=== PATIENT | female | born 1995 | race African-American/Black ===

== ENCOUNTER 2017-01-14 20:50 | Emergency (ER) | payer BC, OTHER ==
[~2017-01-14] VITALS: Ht 167.6 cm; Wt 104.2 kg
[2017-01-14 20:55] VITALS: Ht 167.6 cm; Wt 104.2 kg
[2017-01-14 21:40] VITALS: TEMP 37.3
[2017-01-14 22:19] LABS: BASO % 0.1 %; BASO ABS # 0.01 K/uL (0-0.2); COMPLETE YES; HEMATOCRIT 38.9 % (37-47); IG% 0.9 %; LYMPH % 10.3 %; LYMPH ABS # 1.61 K/uL (1.2-3.4); MEAN CELL VOLUME 79.1 fL (80-100); MEAN CORPUSCULAR HGB CONC 32.9 g/dl (32-36); MEAN PLATELET VOLUME 9.4 fL (7.4-10.4); MONO % 2.6 %; NEUT % 86.1 %; PLATELET COUNT 359 K/uL (130-400); RED BLOOD COUNT 4.92 M/uL (4.2-5.4); WHITE BLOOD COUNT 15.67 K/uL (4.8-10.8)
[2017-01-14] MEDS ORDERED: [UNRECOGNIZED DRUG - CODE] PO ×2 (22:33)
[2017-01-14] MEDS ORDERED: NEBI2.5T2 PO ×2 (22:33)
[2017-01-14] MEDS ORDERED: AMT24 PO ×2 (22:33)
[2017-01-14] MEDS ORDERED: LIDO1PAD2 TOP ×2 (22:33)
[2017-01-14] MEDS ORDERED: CETI10TA10 PO ×2 (22:33)
[2017-01-14] MEDS ORDERED: ABL10 PO ×2 (22:33)
[2017-01-14] MEDS ORDERED: CYCL5TAB PO ×2 (22:33)
[2017-01-14] MEDS ORDERED: EPIN2INJ IM ×2 (22:33)
[2017-01-14] MEDS ORDERED: CLON1TAB3 PO ×2 (22:33)
[2017-01-14] MEDS ORDERED: FLUO40CA8 PO ×2 (22:33)
[2017-01-14] MEDS ORDERED: FRS/40 PO ×2 (22:33)
[2017-01-14] MEDS ORDERED: BUSP30TA2 PO ×2 (22:33)
[2017-01-14] MEDS ORDERED: PROM25TA9 PO ×2 (22:33)
[2017-01-14] MEDS ORDERED: LINA1CAP PO ×2 (22:33)
[2017-01-14] MEDS ORDERED: METO-157 PO (22:33)
--- NOTE | 2017-01-14 22:36 | EMERGENCY ROOM VISIT NOTE ---
History Report prepared by Shantell: Morgan Amaya Under the Supervision of: Dr. Abdulaziz Pool M.D. First contact with patient: 21:01 Chief Complaint: ABDOMINAL PAIN Stated Complaint: LOWER ABDOMINAL PAIN, BACK PAIN, FEVER- REFERRED History of Present Illness The patient is a 21 year old female who presents to the Emergency Room with complaints of constant abdominal pain for the past couple of days. She currently rates her discomfort as a 9/10 in severity. The patient additionally notes that she is having some back pain and a fever. She states that she has been having urinary retention issues. The patient has recently been Seen at the [facility] in [place] for some swelling episodes during which her mouth swells, her throat swells, and her abdomen swells. The patient he been using a straight cath by herself, and they did not put a Gregorio catheter in place. The patient also has a history of rheumatoid arthritis. Source of History: patient, parent Onset: couple of days ago Position: abdomen Symptom Intensity: 9/10 Timing: constant Associated Symptoms: + back pain, + urinary symptoms Review of Systems See HPI for pertinent positives & negatives. A total of 10 systems reviewed and were otherwise negative. Past Medical & Surgical Medical Problems: (1) Asthma (2) Kidney stone (3) Ulcer Family History Cancer Diabetes mellitus Gallbladder disease Heart disease Hypertension Kidney disease Kidney stones Lung disease Social History Smoking Status: Never Smoker Drug Use: none Marital Status: single Housing Status: lives with family Occupation Status: unemployed Current/Historical Medications Scheduled Aripiprazole (Abilify), 10 MG PO DAILY Baclofen (Lioresal), 10 MG PO QID Bisoprolol Fumarate (Bisoprolol Fumarate), 1 TAB PO UD Buspirone Hcl (Buspirone Hcl), 30 MG PO BID Cetirizine Hcl (Zyrtec), 20 MG PO BID Clonazepam (Klonopin), 1 TAB PO UD Cromolyn Sodium (Mastocytosis) (Cromolyn Sodium), 10 ML PO TID Cyclobenzaprine Hcl (Flexeril), 5 MG PO DAILY Docusate Sodium (Colace), 1 CAP PO UD Fluoxetine (Prozac), 40 MG PO DAILY Fluticasone Prop/Salmeterol (Advair Diskus 250/50 60 Dose), 1 PUFF INH BID Granisetron (Sancuso), 1 PATCH TOP WK Hydroxychloroquine Sulfate (Plaquenil), 400 MG PO DAILY Lactobacillus (Acidophilus), 1 CAP PO BID Lactulose (Chronulac), 10 ML PO BID Lansoprazole (Prevacid), 30 MG PO DAILY Linaclotide (Linzess), 145 MCG PO DAILY Lisdexamfetamine Dimesylate (Vyvanse), 1 DOSE PO DAILY Loratadine (Claritin), 10 MG PO DAILY Lorazepam (Ativan), 1 DOSE PO UD Lubiprostone (Amitiza), 24 MCG PO BID Montelukast Sodium (Montelukast Sodium), 10 MG PO DAILY Nebivolol Hcl (Bystolic), 2.5 MG PO HS Norethindrone (Aygestin), 5 MG PO DAILY Plecanatide (Trulance), 1 TAB PO UD Polyethylene Glycol 3350 (Bulk (Polyethylene Glycol 3350), 1 GM PO TID Pregabalin (Lyrica), 1 CAP PO UD Ranitidine Hcl (Ranitidine Hcl), 150 MG PO BID Sulfa/Trimethoprim (Bactrim Ds 800MG/160MG), 1 TAB PO BID Tamsulosin Hcl (Flomax), 1 CAP PO UD Trazodone Hcl (Trazodone), 100 MG PO HS Scheduled PRN Albuterol (Ventolin Hfa), 2 PUFFS INH Q4H PRN for SOB/WHZ/Cough Albuterol Sulf (Albuterol Sulfate), 3 ML NEB QID PRN for SOB/Wheeze/Cough Diphenhydramine Hcl (Benadryl Allergy Children), 5-10 ML PO QID PRN for Swelling Epinephrine (Epipen-Jr 2-Jai), 0.15 MG IM UD PRN for ALLERGIC REACTION Furosemide (Lasix), 40 MG PO BID PRN for Fluid Retention Lidocaine (Lidocaine), 1 PATCH TOP DAILY PRN for Pain Metoclopramide (Reglan), 10 MG PO Q6H PRN for Nausea Oxycodone/Acetaminophen 5MG/325MG (Percocet 5MG/325MG), 1-2 TAB PO Q4H PRN for Pain Prednisone (Prednisone), 10 MG PO UD PRN for Swelling Promethazine Hcl (Phenergan), 25 MG PO Q4H PRN for Nausea Allergies Coded Allergies: Amoxicillin (Verified Allergy, Severe, ANAPHYLAXIS, 01/14/17) Clindamycin (Verified Allergy, Severe, ANAPHYLAXIS, 01/14/17) Physical Exam Vital Signs Date Time Temp Pulse Resp B/P (MAP) Pulse Ox O2 Delivery O2 Flow Rate FiO2 01/15/17 01:27 83 18 141/91 97 Room Air 01/14/17 21:42 110 01/14/17 21:40 37.3 01/14/17 20:55 37.7 122 18 144/77 98 Room Air Physical Exam GENERAL: Patient is a healthy-appearing well-nourished female HEAD: Normocephalic atraumatic EYES: Ocular movements intact pupils equal and react to light OROPHARYNX mucous membranes are moist no exudates present no erythema or edema present NECK: Supple no nuchal rigidity CHEST: Good equal expansion LUNGS: Clear and equal to auscultation CARDIAC: Normal S1 and S2 ABDOMEN: Soft nontender no guarding BACK: No CVA tenderness EXTREMITIES: No pain upon palpation normal muscle strength in all groups no clubbing cyanosis or edema NEURO: Patient is following commands and answering questions appropriately. Alert and oriented x3 Cranial Nerves 2-12 grossly intact Medical Decision & Procedures ER Provider Diagnostic Interpretation: Radiology results as stated below per my review and radiologist interpretation: CT ABDOMEN & PELVIS with contrast: Moderate to large amount of stool in the colon suggesting constipation. The appendix is normal in size and without evidence of surrounding inflammatory change. Trace free fluid in pelvis, likely physiologic. Multiple follicles in left ovary. No evidence of adnexal mass No small bowel obstructions. No free air. The liver, spleen, pancreas, gallbladder and kidneys are unremarkable. Urinary bladder is distended and otherwise unremarkable. Small fat-containing umbilical hernia Radiologist: Vamsi Hernandes MD Laboratory Results 01/14/17 22:08 Red Blood Count 4.92, Mean Corpuscular Volume 79.1, Mean Corpuscular Hemoglobin 26.0, Mean Corpuscular Hemoglobin Concent 32.9, Mean Platelet Volume 9.4, Neutrophils (%) (Auto) 86.1, Lymphocytes (%) (Auto) 10.3, Monocytes (%) (Auto) 2.6, Eosinophils (%) (Auto) 0.0, Basophils (%) (Auto) 0.1, Neutrophils # (Auto) 13.50, Lymphocytes # (Auto) 1.61, Monocytes # (Auto) 0.41, Eosinophils # (Auto) 0.00, Basophils # (Auto) 0.01 01/14/17 22:08 Test 01/14/17 22:08 01/14/17 23:20 White Blood Count 15.67 K/uL (4.8-10.8) Red Blood Count 4.92 M/uL (4.2-5.4) Hemoglobin 12.8 g/dL (12.0-16.0) Hematocrit 38.9 % (37-47) Mean Corpuscular Volume 79.1 fL (80-100) Mean Corpuscular Hemoglobin 26.0 pg (25-34) Mean Corpuscular Hemoglobin Concent 32.9 g/dl (32-36) Platelet Count 359 K/uL (130-400) Mean Platelet Volume 9.4 fL (7.4-10.4) Neutrophils (%) (Auto) 86.1 % Lymphocytes (%) (Auto) 10.3 % Monocytes (%) (Auto) 2.6 % Eosinophils (%) (Auto) 0.0 % Basophils (%) (Auto) 0.1 % Neutrophils # (Auto) 13.50 K/uL (1.4-6.5) Lymphocytes # (Auto) 1.61 K/uL (1.2-3.4) Monocytes # (Auto) 0.41 K/uL (0.11-0.59) Eosinophils # (Auto) 0.00 K/uL (0-0.5) Basophils # (Auto) 0.01 K/uL (0-0.2) RDW Standard Deviation 43.9 fL (36.4-46.3) RDW Coefficient of Variation 15.3 % (11.5-14.5) Immature Granulocyte % (Auto) 0.9 % Immature Granulocyte # (Auto) 0.14 K/uL (0.00-0.02) Anion Gap 10.0 mmol/L (3-11) Est Creatinine Clear Calc Drug Dose 120.9 ml/min Estimated GFR () 106.6 Estimated GFR (Non- 92.0 BUN/Creatinine Ratio 18.0 (10-20) Calcium Level 9.2 mg/dl (8.5-10.1) Total Bilirubin 0.2 mg/dl (0.2-1) Direct Bilirubin < 0.1 mg/dl (0-0.2) Aspartate Amino Transf (AST/SGOT) 8 U/L (15-37) Alanine Aminotransferase (ALT/SGPT) 19 U/L (12-78) Alkaline Phosphatase 107 U/L (45-117) Total Protein 8.1 gm/dl (6.4-8.2) Albumin 3.8 gm/dl (3.4-5.0) Lipase 109 U/L (73-393) Urine Color YELLOW Urine Appearance CLEAR (CLEAR) Urine pH 5.5 (4.5-7.5) Urine Specific [place] 1.028 (1.000-1.030) Urine Protein NEG (NEG) Urine Glucose (UA) NEG (NEG) Urine Ketones NEG (NEG) Urine Occult Blood NEG (NEG) Urine Nitrite NEG (NEG) Urine Bilirubin NEG (NEG) Urine Urobilinogen NEG (NEG) Urine Leukocyte Esterase TRACE (NEG) Urine WBC (Auto) 1-5 /hpf (0-5) Urine RBC (Auto) 0-4 /hpf (0-4) Urine Hyaline Casts (Auto) 1-5 /lpf (0-5) Urine Epithelial Cells (Auto) 20-30 /lpf (0-5) Urine Bacteria (Auto) 4+ (NEG) Labs reviewed by ED physician. Medications Administered Medications (Trade) Dose Ordered Sig/Madeline Route Start Time Stop Time Status Last Admin Dose Admin Sodium Chloride 1,000 ml @ 999 mls/hr Q1H1M STAT IV 01/14/17 22:42 01/14/17 23:42 DC 01/14/17 22:42 999 MLS/HR Ketorolac Tromethamine (Toradol Inj) 30 mg NOW STAT IV 01/14/17 22:42 01/14/17 22:44 DC 01/14/17 22:56 30 MG Hydromorphone HCl (Dilaudid Inj) 1 mg NOW STAT IV 01/14/17 22:42 01/14/17 22:44 DC 01/14/17 22:56 1 MG Ondansetron HCl (Zofran Inj) 4 mg NOW STAT IV 01/14/17 22:42 01/14/17 22:44 DC 01/14/17 22:56 4 MG Trimethoprim/ Sulfamethoxazole (Septra Ds 800/ 160MG Tab) 1 tab NOW STAT PO 01/15/17 00:13 01/15/17 00:16 DC 01/15/17 00:24 1 TAB Oxycodone/ Acetaminophen (Percocet 5/ 325MG Home Pack) 1 homepack UD STAT PO 01/15/17 00:13 01/15/17 00:16 DC 01/15/17 00:24 1 HOMEPACK Hydromorphone HCl (Dilaudid Inj) 1 mg NOW STAT IV 01/15/17 00:13 01/15/17 00:16 DC 01/15/17 00:24 1 MG Ceftriaxone Sodium (Rocephin Inj) 1 gm NOW STAT IV 01/15/17 00:13 01/15/17 00:16 DC 01/15/17 00:24 1 GM ED Course 2215: Past medical records reviewed. The patient was evaluated in room A9. A complete history and physical examination was performed. 2242: Zofran 4mg IV, Dilaudid 1mg IV, Toradol 30mg IV, Sodium Chloride 1000 ml @ 999 mls/hr IV 2355: I reevaluated the patient, and I reviewed all the case reports from [facility]. Her white blood cell count was elevated while in the hospital there. They did not put a Gregorio catheter in because of her chronic immunosuppression from steroids. I think that the patient is at high risk for infection here, so she is going to give antibiotics and a Gregorio was placed. The patient will be discharged home. 0013: Rocephin 1gm IV, Dilaudid 1mg IV, Percocet 5/325mg Home Pack PO, Septra Ds 800/160mg Tab PO Medical Decision Differential diagnosis: Etiologies such as appendicitis, diverticulitis, PUD, biliary pathology, UTI, pancreatitis, obstruction, mesenteric ischemia, aortic pathology, infections, inflammatory bowel disease, renal colic, as well as others were entertained. This is a 21-year-old female who presents emergency department complaining of abdominal pain. The patient recently had stay at the [facility] and is passing through [facility]. I will note she is afebrile here. The patient does have an elevation in her white blood count cell count however is on prednisone and recently completed a prednisone taper. The patient has a large amount of stool on her CAT scan of the abdomen and pelvis. The patient has to bowel regimens that she normally uses and I stressed the need to increase to the larger bowel regimen. The patient is also self cathing. Using shared medical decision-making as well as the fact that the patient is immuno suppressed due to the prednisone use we felt it better to have a Gregorio catheter placed at the patient and her mother are worried she is going to develop an infection. I will place the patient on Bactrim. She does have a follow-up appointment with her urologist at home. Both patient and mother were in agreement with the treatment plan. Impression Primary Impression: Urinary retention Additional Impressions: UTI (urinary tract infection) Abdominal pain Constipation Scribe Attestation The scribe's documentation has been prepared under my direction and personally reviewed by me in its entirety. I confirm that the note above accurately reflects all work, treatment, procedures, and medical decision making performed by me. Departure Information Dispostion Home / Self-Care Prescriptions Oxycodone/Acetaminophen 5MG/325MG (PERCOCET 5MG/325MG) Tab 1-2 TAB PO Q4H Y for Pain, #14 TAB Prov: Abdulaziz Pool MD 01/15/17 Sulfa/Trimethoprim (Bactrim Ds 800MG/160MG) Tab 1 TAB PO BID for 7 Days, #14 TAB Prov: Abdulaziz Polo MD 01/15/17 Referrals No Doctor, Assigned (PCP) Forms HOME CARE DOCUMENTATION FORM, IMPORTANT VISIT INFORMATION, School Instructions, Work Instructions Patient Instructions ED Catheter Care Gregorio, ED UTI Cystitis Female, My [facility] Additional Instructions Need follow up with Urologist at home You received narcotic or benzodiazepene medication while in the emergency room today. This is an addictive medication that may cause drowziness as well as constipation. Do not drive, operate heavy machinery, or drink alcohol under the influence of this medication. Take 600 mg Ibuprofen every 6 hours Take Percocet for breakthrough pain Radiographs and CTs will be reread by a radiologist in the morning. Culture results are usually available in approx 48 hours You have been examined and treated today on an emergency basis only. This is not a substitute for, or an effort to provide, complete comprehensive medical care. It is impossible to recognize and treat all injuries or illnesses in a single emergency department visit. It is therefore important that you follow up closely with your PCP. Call as soon as possible for an appointment. Thank you for your time and consideration. I look forward to speaking with you again soon. Please don't hesitate to call us if you have any questions. Problem Qualifiers Additional Impressions: UTI (urinary tract infection) Urinary tract infection type: acute cystitis Hematuria presence: without hematuria Qualified Codes: N30.00 - Acute cystitis without hematuria Abdominal pain Abdominal location: lower abdomen, unspecified Qualified Codes: R10.30 - Lower abdominal pain, unspecified Constipation Constipation type: unspecified constipation type Qualified Codes: K59.00 - Constipation, unspecified
[2017-01-14 22:38] LABS: ALT/SGPT 19 U/L (12-78); BLOOD UREA NITROGEN 16 mg/dl (7-18); CALCIUM 9.2 mg/dl (8.5-10.1); CARBON DIOXIDE 22 mmol/L (21-32); CHLORIDE 107 mmol/L (98-107); CREATININE 0.89 mg/dl (0.60-1.20); GLUCOSE 103 mg/dl (70-99); POTASSIUM 4.6 mmol/L (3.5-5.1); SODIUM 139 mmol/L (136-145)
[2017-01-14 22:40] LABS: ALKALINE PHOSPHATASE 107 U/L (45-117); AST/SGOT 8 U/L (15-37)
[2017-01-14] MEDS ORDERED: CLR10 PO ×2 (22:40)
[2017-01-14] MEDS ORDERED: NORE5TAB5 PO ×2 (22:40)
[2017-01-14] MEDS ORDERED: LACTCAP3 PO ×2 (22:40)
[2017-01-14] MEDS ORDERED: POLY1POW2 PO ×2 (22:40)
[2017-01-14] MEDS ORDERED: LACT10SO17 PO ×2 (22:40)
[2017-01-14] MEDS ORDERED: MONT1TAB5 PO ×2 (22:40)
[2017-01-14] MEDS ORDERED: ADVIN25/60 INH ×2 (22:40)
[2017-01-14] MEDS ORDERED: HYDR200T5 PO ×2 (22:40)
[2017-01-14] MEDS ORDERED: KETOROLAC TROMETHAMINE 30 MG/ML VIAL IV STA (22:42)
[2017-01-14] MEDS ORDERED: HYDROmorphone INJ 1 MG/ML SYR IV STA (22:42)
[2017-01-14] MEDS ORDERED: SODIUM CHLORIDE 0.9% 1000ML 1,000 ML IV STA (22:42)
[2017-01-14] MEDS ORDERED: ONDANSETRON INJ 2 MG/ML 2 ML VIAL IV STA (22:42)
[2017-01-14] MEDS ORDERED: DIPH1LIQ2 PO (22:44)
[2017-01-14] MEDS ORDERED: BACL10TA PO ×2 (22:44)
[2017-01-14] MEDS ORDERED: PRVHFAIN INH ×2 (22:44)
[2017-01-14] MEDS ORDERED: TRAZ100T29 PO ×2 (22:44)
[2017-01-14] MEDS ORDERED: RANI150C4 PO ×2 (22:44)
[2017-01-14] MEDS ORDERED: OPTIRAY 320 IV PRN (22:45)
[2017-01-14] MEDS ORDERED: ALBINS NEB ×2 (22:51)
[2017-01-14] MEDS ORDERED: BISO10TA4 PO (22:58)
[2017-01-14] MEDS ORDERED: PRED10TA PO (22:58)
[2017-01-14] MEDS ORDERED: TAMS0.4C38 PO (22:58)
[2017-01-14] MEDS ORDERED: [UNRECOGNIZED DRUG - CODE] TOP ×2 (22:58)
[2017-01-14] MEDS ORDERED: LANS30CA41 PO ×2 (22:58)
[2017-01-14] MEDS ORDERED: PLEC3TAB PO ×2 (22:58)
[2017-01-14] MEDS ORDERED: PREG1CAP36 PO ×2 (22:58)
[2017-01-14] MEDS ORDERED: DOCU-94 PO ×2 (22:58)
[2017-01-14] MEDS ORDERED: LISD20CA PO ×2 (23:01)
[2017-01-14] MEDS ORDERED: LORA-741 PO ×2 (23:01)
[2017-01-14 23:46] LABS: URINE APPEARANCE CLEAR (CLEAR); URINE BILIRUBIN NEG (NEG); URINE COLOR YELLOW; URINE EPITHELIAL CELL AUTO 20-30 /lpf (0-5); URINE NITRITE NEG (NEG); URINE PH 5.5 (4.5-7.5); URINE SPECIFIC GRAVITY 1.028 (1.000-1.030); UROBILINOGEN NEG (NEG); ZZURINE CULT IF INDIC CATH YES
[2017-01-14 23:48] LABS: MANUAL MICROSCOPIC REQUIRED? NO; REVIEW REQ? NO
[2017-01-15] MEDS ORDERED: HYDROmorphone INJ 1 MG/ML SYR IV STA (00:13)
[2017-01-15] MEDS ORDERED: SULFAMETHOXAZOLE/TRIMETHOPRIM DS 800/160MG TAB PO STA (00:13)
[2017-01-15] MEDS ORDERED: CEFTRIAXONE SOD INJ 1 GM ADDVIAL IV STA (00:13)
[2017-01-15] MEDS ORDERED: PERCOCET HOME PACK PO STA (00:13)
[2017-01-15] MEDS ORDERED: SULF800T23 PO ×3 (00:21→06:01)
[2017-01-15] MEDS ORDERED: OXYC-57 PO ×3 (00:21→06:00)
[2017-01-15 01:27] VITALS: BP 141/91; PULSE 83; O2SAT 97
--- NOTE | 2017-01-15 06:49 | DIAGNOSTIC IMAGING REPORT ---
ABDOMEN AND PELVIS CT WITH IV CONTRAST CT DOSE: 720.02 mGy.cm HISTORY: Acute left lower quadrant abdominal pain Pt c/o lLQ abd pain TECHNIQUE: Multiaxial CT images of the abdomen and pelvis were performed following the use of intravenous contrast. 105 mL Optiray 320 IV contrast was administered. A dose lowering technique was utilized adhering to the principles of ALARA. COMPARISON STUDY: None. FINDINGS: Lung bases are generally clear. There is no pneumoperitoneum identified. Imaged inferior cardiac chambers are unremarkable. The liver, spleen, pancreas, gallbladder and adrenal glands are unremarkable. Kidneys, ureters and urinary bladder are unremarkable. Uterus and right adnexum are also within normal limits. Follicles of the left ovary are seen. The abdominal aorta is normal in both course and caliber. There is no bulky retroperitoneal adenopathy identified. There is a suspected small sliding-type hiatal hernia. No bowel obstruction. Moderate volume of formed stool throughout the colon suggest constipation. No bowel wall thickening identified. The appendix appears normal. Small fat filled periumbilical hernia, diastases 1.3 cm. The bones appear intact. Soft tissues are unremarkable. IMPRESSION: 1. No acute intra-abdominal or intrapelvic abnormality identified. 2. Moderate volume of formed stool throughout the colon suggest constipation. 3. Normal appendix. Electronically signed by: Jean-Paul Skinner M.D. 01/15/2017 6:47 AM Dictated Date/Time: 01/15/2017 6:43 AM
[2017-01-15] MEDS ORDERED: DIPH25CA65 PO ×2 (10:10)
[2017-01-16] MEDS ORDERED: FLM4 PO ×2 (10:46)
[2017-01-16] MEDS ORDERED: PHEN-1043 PO ×2 (10:46)
[2017-01-16] MEDS ORDERED: DTR5 PO ×2 (10:46)
[2017-01-16] MEDS ORDERED: CIPR-255 PO ×2 (10:46)
== END 2017-01-15 01:27 | disposition home or self-care (01) ==
LOC: C.EDB 20:54 → C.EDA 01-15 01:27
DX: R33.9 Retention of urine, unspecified (principal); N39.0 Urinary tract infection, site not specified; R10.9 Unspecified abdominal pain; K59.00 Constipation, unspecified; J45.909 Unspecified asthma, uncomplicated; Z87.442 Personal history of urinary calculi; Z87.19 Personal history of other diseases of the digestive system; Z79.899 Other long term (current) drug therapy; Z88.1 Allergy status to other antibiotic agents; Z88.8 Allergy status to other drugs, medicaments and biological substances; Z80.9 Family history of malignant neoplasm, unspecified; Z83.3 Family history of diabetes mellitus; Z83.79 Family history of other diseases of the digestive system; Z82.49 Family history of ischemic heart disease and other diseases of the circulatory system; Z84.1 Family history of disorders of kidney and ureter

== ENCOUNTER 2017-01-15 05:31 | Inpatient (IN) | payer BC, OTHER ==
[~2017-01-15] VITALS: Ht 167.6 cm; Wt 104.5 kg
[~2017-01-15 05:31] MED LIST: ABL10 PO; ADVIN25/60 INH; ALBINS NEB; AMT24 PO; BACL10TA PO; BISO10TA4 PO; BUSP30TA2 PO; CETI10TA10 PO; CLON1TAB3 PO; CLR10 PO; CYCL5TAB PO; DIPH1LIQ2 PO; DOCU-94 PO; EPIN2INJ IM; FLUO40CA8 PO; FRS/40 PO; HYDR200T5 PO; LACT10SO17 PO; LACTCAP3 PO; LANS30CA41 PO; LIDO1PAD2 TOP; LINA1CAP PO; LISD20CA PO; LORA-741 PO; METO-157 PO; MONT1TAB5 PO; NEBI2.5T2 PO; NORE5TAB5 PO; OXYC-57 PO; PLEC3TAB PO; POLY1POW2 PO; PRED10TA PO; PREG1CAP36 PO; PROM25TA9 PO; PRVHFAIN INH; RANI150C4 PO; SULF800T23 PO; TAMS0.4C38 PO; TRAZ100T29 PO; [UNRECOGNIZED DRUG - CODE] PO; [UNRECOGNIZED DRUG - CODE] TOP
[2017-01-15] MEDS ORDERED: HYDROmorphone INJ 0.5 MG/0.5 ML SYR IV STA ×2 (05:46→15:56)
[2017-01-15] MEDS ORDERED: SODIUM CHLORIDE 0.9% 500ML 500 ML IV STA (05:46)
[2017-01-15] MEDS ORDERED: KETOROLAC TROMETHAMINE 30 MG/ML VIAL IV STA (05:46)
[2017-01-15] MEDS ORDERED: OXYC-57 PO ×2 (06:00)
[2017-01-15] MEDS ORDERED: SULF800T23 PO (06:01)
--- NOTE | 2017-01-15 06:11 | EMERGENCY ROOM VISIT NOTE ---
History Report prepared by Shantell: Irais Hairston Under the Supervision of: Dr. Teresa Cerda M.D. First contact with patient: 05:40 Chief Complaint: ABDOMINAL PAIN Stated Complaint: ABDOMINAL PAIN History of Present Illness The patient is a 21 year old female who presents to the Emergency Room with complaints of persistent abdominal pain starting last night. The patient was seen in the ED yesterday for the same abdominal pain. She is also having some back pain. She was diagnosed with cysts on her ovaries and possible UTI. She was discharged with antibiotics and Percocet. She took two Percocet and went to sleep. She woke up 3 hours later still having pain. She called the ED and was instructed to take ibuprofen which she did. She is still having a lot of pain. She is now draining brown urine into her catheter. She did not have any Pyridium here. She has had a fever. She has a history of angioedema, rheumatoid arthritis, POTS, Bridget Danlos, and IBS. Source of History: patient Onset: last night Position: abdomen Quality: other (pain) Timing: other (persistent) Associated Symptoms: + fevers, + back pain, + urinary symptoms Review of Systems See HPI for pertinent positives & negatives. A total of 10 systems reviewed and were otherwise negative. Past Medical & Surgical Medical Problems: (1) Angioedema (2) Asthma (3) Bridget-Danlos disease (4) IBS (irritable bowel syndrome) (5) Kidney stone (6) POTS (postural orthostatic tachycardia syndrome) (7) Rheumatoid arthritis (8) Ulcer Family History Cancer Diabetes mellitus Gallbladder disease Heart disease Hypertension Kidney disease Kidney stones Lung disease Social History Smoking Status: Never Smoker Drug Use: none Marital Status: single Housing Status: lives with family Occupation Status: unemployed Current/Historical Medications Scheduled Aripiprazole (Abilify), 10 MG PO DAILY Baclofen (Lioresal), 10 MG PO QID Bisoprolol Fumarate (Bisoprolol Fumarate), 1 TAB PO UD Buspirone Hcl (Buspirone Hcl), 30 MG PO BID Cetirizine Hcl (Zyrtec), 20 MG PO BID Clonazepam (Klonopin), 1 MG PO HS Cromolyn Sodium (Mastocytosis) (Cromolyn Sodium), 10 ML PO TID Cyclobenzaprine Hcl (Flexeril), 5 MG PO DAILY Docusate Sodium (Colace), 1 CAP PO UD Fluoxetine (Prozac), 40 MG PO DAILY Fluticasone Prop/Salmeterol (Advair Diskus 250/50 60 Dose), 1 PUFF INH BID Granisetron (Sancuso), 1 PATCH TOP WK Hydroxychloroquine Sulfate (Plaquenil), 400 MG PO DAILY Lactobacillus (Acidophilus), 1 CAP PO BID Lactulose (Chronulac), 10 ML PO BID Lansoprazole (Prevacid), 30 MG PO DAILY Linaclotide (Linzess), 145 MCG PO DAILY Lisdexamfetamine Dimesylate (Vyvanse), 1 DOSE PO DAILY Loratadine (Claritin), 10 MG PO DAILY Lubiprostone (Amitiza), 24 MCG PO BID Montelukast Sodium (Montelukast Sodium), 10 MG PO DAILY Nebivolol Hcl (Bystolic), 2.5 MG PO HS Norethindrone (Aygestin), 5 MG PO DAILY Plecanatide (Trulance), 1 TAB PO UD Polyethylene Glycol 3350 (Bulk (Polyethylene Glycol 3350), 1 GM PO TID Pregabalin (Lyrica), 1 CAP PO UD Ranitidine Hcl (Ranitidine Hcl), 150 MG PO BID Sulfa/Trimethoprim (Bactrim Ds 800MG/160MG), 1 TAB PO BID Sulfa/Trimethoprim (Bactrim Ds 800MG/160MG), 1 TAB PO BID Tamsulosin Hcl (Flomax), 0.4 MG PO UD Trazodone Hcl (Trazodone), 100 MG PO HS Scheduled PRN Albuterol (Ventolin Hfa), 2 PUFFS INH Q4H PRN for SOB/WHZ/Cough Albuterol Sulf (Albuterol Sulfate), 3 ML NEB QID PRN for SOB/Wheeze/Cough Diphenhydramine Hcl (Benadryl Allergy Children), 5-10 ML PO QID PRN for Swelling Epinephrine (Epipen-Jr 2-Jai), 0.15 MG IM UD PRN for ALLERGIC REACTION Furosemide (Lasix), 40 MG PO BID PRN for Fluid Retention Lidocaine (Lidocaine), 1 PATCH TOP DAILY PRN for Pain Lorazepam (Ativan), 1 MG PO UD PRN for Anxiety Metoclopramide (Reglan), 10 MG PO Q6H PRN for Nausea Oxycodone/Acetaminophen 5MG/325MG (Percocet 5MG/325MG), 1-2 TABLETS PO Q4 PRN for Pain Prednisone (Prednisone), 10 MG PO UD PRN for Swelling Promethazine Hcl (Phenergan), 25 MG PO Q4H PRN for Nausea Allergies Coded Allergies: Amoxicillin (Verified Allergy, Severe, ANAPHYLAXIS, 01/15/17) Clindamycin (Verified Allergy, Severe, ANAPHYLAXIS, 01/15/17) Physical Exam Vital Signs Date Time Temp Pulse Resp B/P (MAP) Pulse Ox O2 Delivery O2 Flow Rate FiO2 01/15/17 07:44 78 18 118/89 100 Room Air 01/15/17 07:27 37.1 102 19 158/85 100 Room Air 01/15/17 06:21 100 18 158/85 99 Room Air 01/15/17 06:09 114 01/15/17 05:36 37.1 112 20 145/90 98 Room Air Physical Exam Vital signs reviewed. General: Uncomfortable-appearing female, mildly flushed appearing, in no significant distress. Gregorio catheter in place with cloudy blood tinged urine. HEENT: No scleral icterus, PERRLA, neck supple. Atraumatic. Cardiovascular: Tachycardic rate and regular rhythm, no extra sounds. Pulmonary: Clear to auscultation bilaterally, normal work of breathing. Abdomen: Soft, nontender, nondistended, positive bowel sounds. Musculoskeletal: Atraumatic, no peripheral edema. No significant CVA tenderness. Neurologic: Patient awake alert and oriented x 3 Skin: Warm, dry, no rash Medical Decision & Procedures Laboratory Results 01/15/17 06:39 Red Blood Count 4.65, Mean Corpuscular Volume 78.7, Mean Corpuscular Hemoglobin 26.7, Mean Corpuscular Hemoglobin Concent 33.9, Mean Platelet Volume 9.2, Neutrophils (%) (Auto) 84.2, Lymphocytes (%) (Auto) 9.9, Monocytes (%) (Auto) 5.1, Eosinophils (%) (Auto) 0.0, Basophils (%) (Auto) 0.0, Neutrophils # (Auto) 18.97, Lymphocytes # (Auto) 2.23, Monocytes # (Auto) 1.14, Eosinophils # (Auto) 0.00, Basophils # (Auto) 0.01 01/15/17 06:39 Test 01/15/17 06:39 White Blood Count 22.52 K/uL (4.8-10.8) Red Blood Count 4.65 M/uL (4.2-5.4) Hemoglobin 12.4 g/dL (12.0-16.0) Hematocrit 36.6 % (37-47) Mean Corpuscular Volume 78.7 fL (80-100) Mean Corpuscular Hemoglobin 26.7 pg (25-34) Mean Corpuscular Hemoglobin Concent 33.9 g/dl (32-36) Platelet Count 324 K/uL (130-400) Mean Platelet Volume 9.2 fL (7.4-10.4) Neutrophils (%) (Auto) 84.2 % Lymphocytes (%) (Auto) 9.9 % Monocytes (%) (Auto) 5.1 % Eosinophils (%) (Auto) 0.0 % Basophils (%) (Auto) 0.0 % Neutrophils # (Auto) 18.97 K/uL (1.4-6.5) Lymphocytes # (Auto) 2.23 K/uL (1.2-3.4) Monocytes # (Auto) 1.14 K/uL (0.11-0.59) Eosinophils # (Auto) 0.00 K/uL (0-0.5) Basophils # (Auto) 0.01 K/uL (0-0.2) RDW Standard Deviation 44.2 fL (36.4-46.3) RDW Coefficient of Variation 15.5 % (11.5-14.5) Immature Granulocyte % (Auto) 0.8 % Immature Granulocyte # (Auto) 0.17 K/uL (0.00-0.02) Hypersegmented Polys 1+ Toxic Vacuolation 1+ Microcytosis PRESENT Anion Gap 11.0 mmol/L (3-11) Est Creatinine Clear Calc Drug Dose 118.4 ml/min Estimated GFR () 103.8 Estimated GFR (Non- 89.6 BUN/Creatinine Ratio 17.1 (10-20) Bedside Lactic Acid Venous 1.66 mmol/L (0.90-1.70) Calcium Level 8.2 mg/dl (8.5-10.1) Total Bilirubin 0.2 mg/dl (0.2-1) Direct Bilirubin < 0.1 mg/dl (0-0.2) Aspartate Amino Transf (AST/SGOT) 10 U/L (15-37) Alanine Aminotransferase (ALT/SGPT) 19 U/L (12-78) Alkaline Phosphatase 97 U/L (45-117) Total Protein 7.1 gm/dl (6.4-8.2) Albumin 3.2 gm/dl (3.4-5.0) Laboratory results per my review. Medications Administered Medications (Trade) Dose Ordered Sig/Madeline Route Start Time Stop Time Status Last Admin Dose Admin Sodium Chloride 500 ml @ 999 mls/hr Q31M STAT IV 01/15/17 05:46 01/15/17 06:16 DC 01/15/17 06:29 999 MLS/HR Ketorolac Tromethamine (Toradol Inj) 30 mg NOW STAT IV 01/15/17 05:46 01/15/17 05:48 DC 01/15/17 06:30 30 MG Hydromorphone HCl (Dilaudid Inj) 0.5 mg NOW STAT IV 01/15/17 05:46 01/15/17 05:48 DC 01/15/17 06:30 0.5 MG Miscellaneous (Soap Suds Enema) 1 ea NOW STAT NV 01/15/17 07:13 01/15/17 07:15 DC 01/15/17 07:36 1 EA ED Course 0542: Past medical records reviewed. The patient was evaluated in room B10. A complete history and physical examination was performed. 0546: Dilaudid Inj 0.5 mg IV, Toradol Inj 30 mg IV, NSS 500 ml @ 999 mls/hr IV. 0650: I reevaluated the patient. She is resting comfortably. Medical Decision Differential diagnosis: Influenza, other viral illness, pneumonia, urinary tract infection, metabolic abnormality, medication effect, cellulitis, meningitis, intra-abdominal source. This patient was evaluated and appeared to be in some discomfort. The patient appears to be flushed and tachycardic. She is complaining of lower abdominal discomfort. Urinalysis performed late last evening is essentially negative. There is some epithelial contamination. 800 mL of urine drained from the Gregorio catheter. Laboratory work indicated a leukocytosis of 15,000. Repeat today reveals a leukocytosis of 22,000. The patient did receive IV ceftriaxone and oral Bactrim last evening prior to discharge. CT scan of the abdomen and pelvis was performed and is essentially negative with the exception of the constipation and urinary retention. Patient's lactate is normal. Vital signs are stabilizing. A soapsuds enema has been ordered. Given the elevation in the white blood cell count and increase in pain, the patient will be evaluated by the hospitalist service for further management. Impression Primary Impression: Leukocytosis Additional Impressions: Acute urinary retention Constipation Traumatic hematuria Scribe Attestation The scribe's documentation has been prepared under my direction and personally reviewed by me in its entirety. I confirm that the note above accurately reflects all work, treatment, procedures, and medical decision making performed by me. Departure Information Referrals No Doctor, Assigned (PCP) Patient Instructions My [facility] Problem Qualifiers
[2017-01-15 06:56] LABS: HEMATOCRIT 36.6 % (37-47); MEAN CELL VOLUME 78.7 fL (80-100); MEAN CORPUSCULAR HEMOGLOBIN 26.7 pg (25-34); MEAN CORPUSCULAR HGB CONC 33.9 g/dl (32-36); MEAN PLATELET VOLUME 9.2 fL (7.4-10.4); PLATELET COUNT 324 K/uL (130-400); RED BLOOD COUNT 4.65 M/uL (4.2-5.4); WHITE BLOOD COUNT 22.52 K/uL (4.8-10.8)
[2017-01-15 07:08] LABS: ALT/SGPT 19 U/L (12-78); BLOOD UREA NITROGEN 16 mg/dl (7-18); BUN/CREATININE RATIO 17.1 (10-20); CALCIUM 8.2 mg/dl (8.5-10.1); CARBON DIOXIDE 22 mmol/L (21-32); CHLORIDE 105 mmol/L (98-107); CREATININE 0.91 mg/dl (0.60-1.20); GLUCOSE 140 mg/dl (70-99); SODIUM 138 mmol/L (136-145)
[2017-01-15 07:11] LABS: ALKALINE PHOSPHATASE 97 U/L (45-117); AST/SGOT 10 U/L (15-37)
[2017-01-15] MEDS ORDERED: SOAP SUDS ENEMA PR STA (07:13)
[2017-01-15 07:15] LABS: BASO ABS # 0.01 K/uL (0-0.2); COMPLETE YES; HYPERSEGMENTED POLYS 1+; IG% 0.8 %; LYMPH % 9.9 %; LYMPH ABS # 2.23 K/uL (1.2-3.4); MICROCYTOSIS PRESENT; MONO % 5.1 %; NEUT % 84.2 %; VACUOLIZATION 1+
[2017-01-15 07:27] VITALS: BP 158/85; PULSE 102; TEMP 37.1; O2SAT 100; Ht 167.6 cm; Wt 104.5 kg
[2017-01-15] MEDS ORDERED: MoRPHine SULFATE 4 MG/ML 1 ML CARP\\VIAL IV STA (08:30)
[2017-01-15] MEDS ORDERED: ACETAMINOPHEN 325 MG TAB PO PRN (09:15)
[2017-01-15] MEDS ORDERED: DIPH25CA65 PO ×2 (10:10)
[2017-01-15] MEDS ORDERED: PROMETHAZINE HCL 25 MG TAB PO PRN (10:15)
[2017-01-15] MEDS ORDERED: EPINEPHRINE JUNIOR AUTO-INJECT 0.15 MG SYR IM PRN (10:15)
[2017-01-15] MEDS ORDERED: LORAZEPAM 1 MG TAB PO PRN (10:15)
[2017-01-15] MEDS ORDERED: CLONAZEPAM 1 MG TAB PO PRN (10:15)
[2017-01-15] MEDS ORDERED: LIDODERM (LIDOCAINE) PATCH 5% TD PRN (10:15)
[2017-01-15] MEDS ORDERED: ALBUTEROL HFA 8 GM INHALER INH PRN (10:15)
[2017-01-15 10:38] VITALS: O2SAT 100
[2017-01-15 10:45] VITALS: BP 112/76; TEMP 36.8; O2SAT 99
[2017-01-15] MEDS ORDERED: SODIUM CHLORIDE 0.9% 1000ML 1,000 ML IV SCH (11:15)
--- NOTE | 2017-01-15 11:48 | History and Physical ---
History & Physical Date & Time of Service: Jan 15, 2017 at 10:48 Chief Complaint: Abdominal Pain Primary Care Physician: No Doctor, Assigned History of Present Illness Source: patient, hospital records This is a 21yo with a PMH of RA, POTS syndrome, angioedema, bipolar disorder, anxiety, Bridget Danlos, IBS and low back pain who presents with worsening abdominal pain. Patient has a complex medical history and was evaluated at [facility] last week in [place] for angioedema. Resides in [facility] but is in [place] with her mom who is attending a work conference. Lower abdominal pain started on Saturday after a few days of acute urinary retention. Was started on Bactrim by her PCP and was instructed to self-cath. Was struggling to self-cath and continued to have urinary retention and back pain, so she presented to [facility] ED yesterday and was diagnosed with ovarian cysts and a possible UTI. A drake catheter was placed and the patient received a rocephin injection before being discharged home on bactrim and percocet. Returned to the ED today with worsening lower abd/suprapubic pain that is constant, sharp and made worse with standing.Still endorsing intermittent "spasm like" pain in her lower back. Rdake is in place draining reddish urine. States that she had a fever last night. Now denying any fever, chills, CP, palpitations, SOB, nausea, vomiting, dysuria, LE swelling. Has a significant history of IBS and endorses feeling constipated over the past week. Has 4 different "tiers" of bowel regimens at home and has been on her 2nd tier regimen, which includes miralax BID, Linzess daily, Amatiza BID and Lactulose BID. Had a soap suds enema in the ER earlier and has had an episode of diarrhea since. Past Medical/Surgical History Medical Problems: (1) Angioedema Status: Resolved (2) Anxiety Status: Chronic (3) Asthma Status: Chronic (4) Bipolar disorder Status: Chronic (5) Rbidget-Danlos disease Status: Chronic (6) IBS (irritable bowel syndrome) Status: Chronic (7) POTS (postural orthostatic tachycardia syndrome) Status: Chronic (8) Rheumatoid arthritis Status: Chronic Family History Cancer Diabetes mellitus Gallbladder disease Heart disease Hypertension Kidney disease Kidney stones Lung disease Social History Smoking Status: Never Smoker Drug Use: none Marital Status: single Housing status: lives with family Occupational Status: unemployed Allergies Coded Allergies: Amoxicillin (Verified Allergy, Severe, ANAPHYLAXIS, 01/15/17) Clindamycin (Verified Allergy, Severe, ANAPHYLAXIS, 01/15/17) Latex (Unverified Allergy, Severe, ANAPHYLAXIS, 01/15/17) Peanut (Unverified Allergy, Severe, ANAPHYLAXIS, 01/15/17) Home Medications Scheduled Aripiprazole (Abilify), 10 MG PO DAILY Baclofen (Lioresal), 10 MG PO QID Buspirone Hcl (Buspirone Hcl), 30 MG PO BID Cetirizine Hcl (Zyrtec), 20 MG PO BID Clonazepam (Klonopin), 1 MG PO HS Cromolyn Sodium (Mastocytosis) (Cromolyn Sodium), 10 ML PO TID Cyclobenzaprine Hcl (Flexeril), 5 MG PO DAILY Diphenhydramine Hcl (Benadryl Allergy), 1 CAP PO QID Docusate Sodium (Colace), 1 CAP PO UD Fluoxetine (Prozac), 40 MG PO DAILY Fluticasone Prop/Salmeterol (Advair Diskus 250/50 60 Dose), 1 PUFF INH BID Granisetron (Sancuso), 1 PATCH TOP WK Hydroxychloroquine Sulfate (Plaquenil), 400 MG PO DAILY Lactobacillus (Acidophilus), 1 CAP PO BID Lactulose (Chronulac), 10 ML PO QID Lansoprazole (Prevacid), 30 MG PO DAILY Linaclotide (Linzess), 145 MCG PO DAILY Lisdexamfetamine Dimesylate (Vyvanse), 1 DOSE PO DAILY Loratadine (Claritin), 10 MG PO DAILY Lubiprostone (Amitiza), 24 MCG PO BID Montelukast Sodium (Montelukast Sodium), 10 MG PO DAILY Nebivolol Hcl (Bystolic), 2.5 MG PO HS Norethindrone (Aygestin), 5 MG PO DAILY Plecanatide (Trulance), 1 TAB PO UD Polyethylene Glycol 3350 (Bulk (Polyethylene Glycol 3350), 1 GM PO TID Pregabalin (Lyrica), 1 CAP PO UD Ranitidine Hcl (Ranitidine Hcl), 150 MG PO BID Sulfa/Trimethoprim (Bactrim Ds 800MG/160MG), 1 TAB PO BID Trazodone Hcl (Trazodone), 100 MG PO HS Scheduled PRN Albuterol (Ventolin Hfa), 2 PUFFS INH Q4H PRN for SOB/WHZ/Cough Albuterol Sulf (Albuterol Sulfate), 3 ML NEB QID PRN for SOB/Wheeze/Cough Epinephrine (Epipen-Jr 2-Jai), 0.15 MG IM UD PRN for ALLERGIC REACTION Furosemide (Lasix), 40 MG PO BID PRN for Fluid Retention Lidocaine (Lidocaine), 1 PATCH TOP DAILY PRN for Pain Lorazepam (Ativan), 1 MG PO UD PRN for Anxiety Oxycodone/Acetaminophen 5MG/325MG (Percocet 5MG/325MG), 1-2 TABLETS PO Q4 PRN for Pain Promethazine Hcl (Phenergan), 25 MG PO Q4H PRN for Nausea Review of Systems Ten systems reviewed and negative except as noted in the HPI. Physical Exam Vital Signs Date Time Temp Pulse Resp B/P (MAP) Pulse Ox O2 Delivery O2 Flow Rate FiO2 01/15/17 10:38 81 18 123/81 100 01/15/17 09:41 69 18 107/59 100 Room Air 01/15/17 07:44 78 18 118/89 100 Room Air 01/15/17 07:27 37.1 102 19 158/85 100 Room Air 01/15/17 06:21 100 18 158/85 99 Room Air 01/15/17 06:09 114 01/15/17 05:36 37.1 112 20 145/90 98 Room Air General Appearance: no apparent distress, + obese Head: normocephalic, atraumatic Eyes: normal inspection, PERRL, sclerae normal (conjunctiva normal ) ENT: normal ENT inspection, hearing grossly normal, pharynx normal (dry mucous membranes ) Neck: supple, thyroid normal, trachea midline Respiratory/Chest: chest non-tender, lungs clear, normal breath sounds, no respiratory distress, no accessory muscle use Cardiovascular: regular rate, rhythm, no murmur, normal peripheral pulses Abdomen/GI: normal bowel sounds, soft, no organomegaly, + tenderness (TTP in lower abdomen/suprapubic area ) Genitourinary - Female: + pertinent finding (Drake in place ) Back: normal inspection, + pertinent finding (Paravertebral TTP in lumbosacral area. No CVA tenderness ) Extremities/Musculoskelatal: normal inspection, no calf tenderness, non-tender , + swelling (Trace swelling of ankles bilaterally ) Neurologic/Psych: no motor/sensory deficits, alert, normal mood/affect, oriented x 3 Skin: normal color, warm/dry, no rash Diagnostics Laboratory Results Results Past 24 Hours Test 01/15/17 06:39 Range/Units White Blood Count 22.52 4.8-10.8 K/uL Red Blood Count 4.65 4.2-5.4 M/uL Hemoglobin 12.4 12.0-16.0 g/dL Hematocrit 36.6 37-47 % Mean Corpuscular Volume 78.7 80-100 fL Mean Corpuscular Hemoglobin 26.7 25-34 pg Mean Corpuscular Hemoglobin Concent 33.9 32-36 g/dl Platelet Count 324 130-400 K/uL Mean Platelet Volume 9.2 7.4-10.4 fL Neutrophils (%) (Auto) 84.2 % Lymphocytes (%) (Auto) 9.9 % Monocytes (%) (Auto) 5.1 % Eosinophils (%) (Auto) 0.0 % Basophils (%) (Auto) 0.0 % Neutrophils # (Auto) 18.97 1.4-6.5 K/uL Lymphocytes # (Auto) 2.23 1.2-3.4 K/uL Monocytes # (Auto) 1.14 0.11-0.59 K/uL Eosinophils # (Auto) 0.00 0-0.5 K/uL Basophils # (Auto) 0.01 0-0.2 K/uL RDW Standard Deviation 44.2 36.4-46.3 fL RDW Coefficient of Variation 15.5 11.5-14.5 % Immature Granulocyte % (Auto) 0.8 % Immature Granulocyte # (Auto) 0.17 0.00-0.02 K/uL Hypersegmented Polys 1+ Toxic Vacuolation 1+ Microcytosis PRESENT Sodium Level 138 136-145 mmol/L Potassium Level 4.0 3.5-5.1 mmol/L Chloride Level 105 98-107 mmol/L Carbon Dioxide Level 22 21-32 mmol/L Anion Gap 11.0 3-11 mmol/L Blood Urea Nitrogen 16 7-18 mg/dl Creatinine 0.91 0.60-1.20 mg/dl Est Creatinine Clear Calc Drug Dose 118.4 ml/min Estimated GFR () 103.8 Estimated GFR (Non- 89.6 BUN/Creatinine Ratio 17.1 10-20 Random Glucose 140 70-99 mg/dl Bedside Lactic Acid Venous 1.66 0.90-1.70 mmol/L Calcium Level 8.2 8.5-10.1 mg/dl Total Bilirubin 0.2 0.2-1 mg/dl Direct Bilirubin < 0.1 0-0.2 mg/dl Aspartate Amino Transf (AST/SGOT) 10 15-37 U/L Alanine Aminotransferase (ALT/SGPT) 19 12-78 U/L Alkaline Phosphatase 97 45-117 U/L Total Protein 7.1 6.4-8.2 gm/dl Albumin 3.2 3.4-5.0 gm/dl Microbiology Results 01/15/17 Blood Culture, Received Pending 01/15/17 Blood Culture, Received Pending Diagnostic Radiology CT abd/pelvis: IMPRESSION: 1. No acute intra-abdominal or intrapelvic abnormality identified. 2. Moderate volume of formed stool throughout the colon suggest constipation. 3. Normal appendix. Impression Assessment and Plan This is a 21yo with a PMH of RA, POTS syndrome, angioedema, bipolar disorder, anxiety, Bridget Danlos, IBS and low back pain who presents with worsening abdominal pain. UTI: -Failed out-patient course of Bactrim -Received 1 dose of Rocephin in ER yesterday -Initiated IV Cipro today -Leukocytosis increased from 15 to 22.5 since yesterday -H/o chronic steroid use but denies taking currently -Blood and urine cultures pending -IVF resuscitation -Monitor CBC Urinary retention: -Endorses since last Saturday -Attempted to self cath but drake was placed yesterday -Hematuria 2/2 trauma to area -Likely caused in part by multiple anticholinergic medications -Urology consulted Abdominal pain: -Likely 2/2 UTI as well as constipation -CT abd/pelvis with mod. amt of stool in colon -Received a soap suds enema in ER with some success -Home meds for pain control -Increased "tier" of home constipation regimen: -Trulance -Linzess BID -Miralax TID -Lactulose QID -Sen[place]ot S Lower back pain: -No fever or CVA tenderness suggestive of pyelonephritis -Likely 2/2 immobility after multiple hospitalizations -States that she cannot get comfortable in hospital bed -Encouraged ambulation, scheduled Q shift -Continue home pain regimen of Baclofen, flexeril, lyrica, lidocaine patch Angioedema: -Seeks care at [facility] -Unknown etiology -Continue regimen of Benadryl 25 QID, Cromolyn sodium POTS Syndrome: -VS stable -Continue home dose Bystolic RA: -Continue Plaquenil Allergies: -Endorses anaphylactic reaction to amoxicillin, clinda, peanuts, latex -Also endorses severe seasonal allergies -Cont home regimen of claritin, zyrtec Bipolar disorder: -Stable -Continue Aripiprazole, Prozac Anxiety: - Continue Ativan PRN Insomnia: -Continue trazodone, klonopin DVT Ppx: SCDs Code status: FULL PCP: Outside provider in [place] Dispo: Plan to return home once medically stable Patient seen in collaboration with Dr. Eldridge. Please see addendum. ADDENDUM: this is a 21 year old female with a PMH of POTS, Bridget Danlos, bipolar disorder , constipation, angioedema and severe allergies presents with urinary retention. she states she's had this once before; was given Flomax, Bethanechol and prednisone and this worked. States that she was told to straight cath starting on Saturday (01/09/17) - but developed hematuria and decided to come to [facility] for further evaluation on 01/14. she was given antibiotics and sent home - but came back due to no resolution of symptoms Has some lower abdominal pain; but no other findings on exam Plan is to consult urology; started on Flomax, Drake catheter. Continue Cipro, await urine culture from 01/14 Level of Care Med/Surg Advanced Directives Existing Living Will: No Existing Power of Fire Suppression Captain: No (n/a) Resuscitation Status FULL RESUSCITATION VTE Prophylaxis VTE Risk Assessment Done? Y/N: Yes Risk Level: Low Given or contraindicated: SCD's
[2017-01-15] MEDS: CIPROFLOXACIN / D5W 400 MG in PREMIXED IN D5W 200 ML IV SCH ×2 (12:05→23:56)
[2017-01-15] MEDS: BACLOFEN 10 MG TAB PO SCH ×3 (12:28→21:39)
[2017-01-15] MEDS: OXYCODONE/ACETAMINOPHEN 5-325 TAB PO PRN ×3 (12:30→21:14)
[2017-01-15] MEDS ORDERED: LACTULOSE SYRUP 10 GM/15 ML BTL 473 ML PO SCH (13:00)
[2017-01-15] MEDS: POLYETHYLENE (MIRALAX) 17 GM PACK PO SCH ×2 (13:36→22:14)
--- NOTE | 2017-01-15 14:16 | Urology Consultation ---
History General Date of Service: Jan 15, 2017. Chief Complaint: urinary retention Primary Care Physician: No Doctor, Assigned Pt seen a urologist before?: Yes (in [place]) History of Present Illness 21 yo female admitted to [facility] with urinary retention and gross hematuria. The pt has a complicated PMH including RA, POTS, and Bridget Danlos. Pt resides in [place], but is currently visiting [place] with her mother who is here for a conference. She reports developing difficulty voiding and pelvic pain since last week. She was placed on Bactrim by her PCP for suspected UTI and instructed to self cath. She had difficulty cathing, and presented to the ED yesterday for this issue. Drake catheter placed at that time and she was treated with IM Rocephin. UC&S preliminarily growing gram negative bacilli. She presented back to [facility] today for worsening pain and gross hematuria. Drake currently draining clear, yellow urine this afternoon. The pt did have a CT showing constipation. She has chronic constipation requiring Miralax, Amitiza, Linzess, and Lactulose. She was evaluated at the [facility] last week, and told she has pelvic floor dysfunction. Pelvic floor PT recommended. She reports a hx of urinary retention last year resolving after 1 month. She did need to do CIC and use Bethanechol and Flomax at that time. She previously saw a urologist in [place] for this issue. Imaging Imaging: CT Laboratory Last 24 Hours Test 01/15/17 06:39 White Blood Count 22.52 K/uL Red Blood Count 4.65 M/uL Hemoglobin 12.4 g/dL Hematocrit 36.6 % Mean Corpuscular Volume 78.7 fL Mean Corpuscular Hemoglobin 26.7 pg Mean Corpuscular Hemoglobin Concent 33.9 g/dl Platelet Count 324 K/uL Mean Platelet Volume 9.2 fL Neutrophils (%) (Auto) 84.2 % Lymphocytes (%) (Auto) 9.9 % Monocytes (%) (Auto) 5.1 % Eosinophils (%) (Auto) 0.0 % Basophils (%) (Auto) 0.0 % Neutrophils # (Auto) 18.97 K/uL Lymphocytes # (Auto) 2.23 K/uL Monocytes # (Auto) 1.14 K/uL Eosinophils # (Auto) 0.00 K/uL Basophils # (Auto) 0.01 K/uL RDW Standard Deviation 44.2 fL RDW Coefficient of Variation 15.5 % Immature Granulocyte % (Auto) 0.8 % Immature Granulocyte # (Auto) 0.17 K/uL Hypersegmented Polys 1+ Toxic Vacuolation 1+ Microcytosis PRESENT Sodium Level 138 mmol/L Potassium Level 4.0 mmol/L Chloride Level 105 mmol/L Carbon Dioxide Level 22 mmol/L Anion Gap 11.0 mmol/L Blood Urea Nitrogen 16 mg/dl Creatinine 0.91 mg/dl Est Creatinine Clear Calc Drug Dose 118.4 ml/min Estimated GFR () 103.8 Estimated GFR (Non- 89.6 BUN/Creatinine Ratio 17.1 Random Glucose 140 mg/dl Bedside Lactic Acid Venous 1.66 mmol/L Calcium Level 8.2 mg/dl Total Bilirubin 0.2 mg/dl Direct Bilirubin < 0.1 mg/dl Aspartate Amino Transf (AST/SGOT) 10 U/L Alanine Aminotransferase (ALT/SGPT) 19 U/L Alkaline Phosphatase 97 U/L Total Protein 7.1 gm/dl Albumin 3.2 gm/dl Problem List Medical Problems: (1) Abdominal pain Status: Acute (2) Acute urinary retention Status: Acute (3) Constipation Status: Acute (4) Constipation Status: Acute (5) Leukocytosis Status: Acute (6) Traumatic hematuria Status: Acute (7) Urinary retention Status: Acute (8) UTI (urinary tract infection) Status: Acute Past History anxiety, asthma, bipolar disorder, rheumatoid arthritis, other (POTS syndrome, angioedema, Bridget-Danlos, IBS) Past Surgical History: no surgical history Family History Cancer Diabetes mellitus Gallbladder disease Heart disease Hypertension Kidney disease Kidney stones Lung disease Social History Hx Tobacco Use In Past Year?: No Smoking: non-smoker Drug use: none Marital status: single Housing status: lives with family Occupation status: unemployed Allergies Coded Allergies: Amoxicillin (Verified Allergy, Severe, ANAPHYLAXIS, 01/15/17) Clindamycin (Verified Allergy, Severe, ANAPHYLAXIS, 01/15/17) Latex (Unverified Allergy, Severe, ANAPHYLAXIS, 01/15/17) Peanut (Unverified Allergy, Severe, ANAPHYLAXIS, 01/15/17) Medications Home Medications: Home Meds and Scripts Medications Dose Route/Sig Max Daily Dose Days Date Category Dose Instructions Benadryl Allergy (Diphenhydramine Hcl) 25 Mg Cap 1 Cap PO QID 30 01/15/17 Reported Percocet 5MG/325MG (Oxycodone/Acetaminophen) Tab 1-2 Tablets PO Q4 PRN 01/15/17 Reported PAIN Bactrim Ds 800MG/160MG (Trimethoprim/Sulfamethoxazole) Tab 1 Tab PO BID 7 01/15/17 Rx Ativan (Lorazepam) Unknown Strength Tab 1 Mg PO UD PRN 01/14/17 Reported Vyvanse (Lisdexamfetamine Dimesylate) Unknown Strength Cap 1 Dose PO DAILY 01/14/17 Reported Lyrica (Pregabalin) Unknown Strength Cap 1 Cap PO UD 01/14/17 Reported Trulance (Plecanatide) Unknown Strength Tab 1 Tab PO UD 01/14/17 Reported Sancuso (Granisetron) 3.1 Mg/24 Hr Dis 1 Patch TOP WK 01/14/17 Reported Prevacid (Lansoprazole) 30 Mg Cap 30 Mg PO DAILY 01/14/17 Reported Colace (Docusate Sodium) Unknown Strength Cap 1 Cap PO UD 01/14/17 Reported Albuterol Sulfate (Albuterol Sulf) 2.5 Mg/3 Ml Nebu 3 Ml NEB QID PRN 01/14/17 Reported Ventolin Hfa (Albuterol) 60 Puffs/5400 Mcg Aers 2 Puffs INH Q4H PRN 01/14/17 Reported Lioresal (Baclofen) 10 Mg Tab 10 Mg PO QID 01/14/17 Reported Ranitidine Hcl 150 Mg Cap 150 Mg PO BID 01/14/17 Reported Trazodone (Trazodone HCl) 100 Mg Tab 100 Mg PO HS 01/14/17 Reported Claritin (Loratadine) 10 Mg Tab 10 Mg PO DAILY 01/14/17 Reported Plaquenil (Hydroxychloroquine Sulfate) 200 Mg Tab 400 Mg PO DAILY 01/14/17 Reported Polyethylene Glycol 3350 (Polyethylene Glycol 3350 (Bulk) 1 Pow Pow 1 Gm PO TID 01/14/17 Reported Aygestin (Norethindrone Acetate) 5 Mg Tab 5 Mg PO DAILY 01/14/17 Reported Montelukast Sodium 10 Mg Tab 10 Mg PO DAILY 01/14/17 Reported Chronulac (Lactulose) 10 Gm/15 Ml Syrp 10 Ml PO QID 01/14/17 Reported Acidophilus (Lactobacillus) 1 Cap Cap 1 Cap PO BID 01/14/17 Reported Advair Diskus 250/50 60 Dose (Fluticasone Prop/Salmeterol) 1 Ea Aerp 1 Puff INH BID 01/14/17 Reported Flexeril (Cyclobenzaprine Hcl) 5 Mg Tab 5 Mg PO DAILY 01/14/17 Reported Klonopin (Clonazepam) Unknown Strength Tab 1 Mg PO HS 01/14/17 Reported Zyrtec (Cetirizine Hcl) 10 Mg Tab 20 Mg PO BID 01/14/17 Reported Epipen-Jr 2-Jai (Epinephrine) 0.15 Mg/0.3 Ml Inj 0.15 Mg IM UD PRN 01/14/17 Reported Buspirone Hcl 30 Mg Tab 30 Mg PO BID 01/14/17 Reported Lasix (Furosemide) 40 Mg Tab 40 Mg PO BID PRN 01/14/17 Reported Cromolyn Sodium (Cromolyn Sodium (Mastocytosis)) 100 Mg/5 Ml Con 10 Ml PO TID 01/14/17 Reported Prozac (Fluoxetine HCl) 40 Mg Cap 40 Mg PO DAILY 01/14/17 Reported Abilify (Aripiprazole) 10 Mg Tab 10 Mg PO DAILY 01/14/17 Reported Linzess (Linaclotide) 145 Mcg Cap 145 Mcg PO DAILY 01/14/17 Reported Amitiza (Lubiprostone) 24 Mcg Cap 24 Mcg PO BID 01/14/17 Reported Phenergan (Promethazine HCl) 25 Mg Tab 25 Mg PO Q4H PRN 01/14/17 Reported Lidocaine 5 % Pad 1 Patch TOP DAILY PRN 01/14/17 Reported Bystolic (Nebivolol Hcl) 2.5 Mg Tab 2.5 Mg PO HS 01/14/17 Reported Inpatient Medications: Current Inpatient Medications Medications (Trade) Dose Ordered Sig/Madeline Route Start Time Stop Time Status Last Admin Dose Admin Acetaminophen (Tylenol Tab) 650 mg Q4H PRN PO 01/15/17 09:15 02/14/17 09:14 Sodium Chloride 1,000 ml @ 150 mls/hr Q6H40M IV 01/15/17 11:15 01/15/17 17:54 01/15/17 11:30 150 MLS/HR Ciprofloxacin/ Dextrose 400 mg/ Prmx 200 ml @ 100 mls/hr Q12H IV 01/15/17 12:00 01/20/17 11:59 01/15/17 12:05 100 MLS/HR Albuterol (Ventolin Hfa Inhaler) 2 puffs Q4H PRN INH 01/15/17 10:15 02/14/17 10:14 Aripiprazole (Abilify Tab) 10 mg DAILY PO 01/16/17 09:00 02/15/17 08:59 Baclofen (Lioresal Tab) 10 mg QID PO 01/15/17 13:00 02/14/17 12:59 01/15/17 12:28 10 MG Cetirizine HCl (zyrTEC TAB) 20 mg BID PO 01/15/17 21:00 02/14/17 20:59 Cyclobenzaprine HCl (Flexeril Tab) 5 mg DAILY PO 01/16/17 09:00 02/15/17 08:59 Diphenhydramine HCl (Benadryl Cap) 25 mg QID PO 01/15/17 13:00 02/14/17 12:59 01/15/17 12:28 25 MG Epinephrine (Epipen Jr) 0.15 mg UD PRN IM 01/15/17 10:15 02/14/17 10:14 Fluoxetine HCl (Prozac Cap) 40 mg DAILY PO 01/16/17 09:00 02/15/17 08:59 Salmeterol Xinafoate/ Fluticasone (Advair Diskus 250/50 Inh) 1 puff BID INH 01/15/17 21:00 02/14/17 20:59 Hydroxychloroquine Sulfate (Plaquenil Tab) 400 mg DAILY PO 01/16/17 09:00 02/15/17 08:59 Lidocaine (Lidoderm Patch 5%) 1 patch DAILY PRN TD 01/15/17 10:15 02/14/17 10:14 Loratadine (Claritin Tab) 10 mg DAILY PO 01/16/17 09:00 02/15/17 08:59 Montelukast Sodium (Singulair Tab) 10 mg DAILY PO 01/16/17 09:00 02/15/17 08:59 Norethindrone Acetate (Aygestin Tab) 5 mg DAILY PO 01/16/17 09:00 02/15/17 08:59 Oxycodone/ Acetaminophen (Percocet 5-325mg Tab) 1 tab Q4 PRN PO 01/15/17 10:15 01/29/17 10:14 01/15/17 12:30 1 TAB Promethazine HCl (Phenergan Tab) 25 mg Q4H PRN PO 01/15/17 10:15 02/14/17 10:14 Trazodone HCl (Desyrel Tab) 100 mg HS PO 01/15/17 21:00 02/14/17 20:59 Miscellaneous Information (Order Awaiting Action) 1 ea QS N/A 01/15/17 12:00 02/14/17 11:59 Pantoprazole Sodium (Protonix Tab) 40 mg DAILY PO 01/16/17 09:00 02/15/17 08:59 Nebivolol (Bystolic Tab) 2.5 mg HS PO 01/15/17 21:00 02/14/17 20:59 Polyethylene (Miralax Powder Packet) 17 gm TID PO 01/15/17 14:00 02/14/17 13:59 01/15/17 13:36 17 GM Ranitidine HCl (zANTac TAB) 150 mg BID PO 01/15/17 21:00 02/14/17 20:59 Buspirone HCl (BusPAR TAB) 30 mg BID PO 01/15/17 21:00 02/14/17 20:59 Clonazepam (Klonopin Tab) 1 mg HS PRN PO 01/15/17 10:15 02/14/17 10:14 Senna/Docusate Sodium (Senokot S Tab) 1 tab QAM PO 01/16/17 09:00 02/15/17 08:59 Lorazepam (Ativan Tab) 1 mg DAILY PRN PO 01/15/17 10:15 02/14/17 10:14 Lactulose (Chronulac Syrup) 6.7 gm QID PO 01/15/17 17:00 02/14/17 16:59 Tamsulosin HCl (Flomax Cap) 0.4 mg HS PO 01/15/17 21:00 02/14/17 20:59 UNV Review of Systems Review of Systems Constitutional: No fever, No chills Eyes: No double vision Neurological: No dizzy Endocrine: No excessive thirst Gastrointestinal: + nausea, No abdominal pain, No vomiting Cardiovascular: No chest pain Respiratory: No shortness of breath Skin: No rash Musculoskeletal: No back pain Female : No blood in urine Physical Exam Vital Signs: Vital Signs Past 12 Hours Date Time Temp Pulse Resp B/P (MAP) Pulse Ox O2 Delivery O2 Flow Rate FiO2 01/15/17 10:45 36.8 16 112/76 (88) 99 Room Air 01/15/17 10:45 Room Air 01/15/17 10:38 81 18 123/81 100 01/15/17 09:41 69 18 107/59 100 Room Air 01/15/17 07:44 78 18 118/89 100 Room Air 01/15/17 07:27 37.1 102 19 158/85 100 Room Air 01/15/17 06:21 100 18 158/85 99 Room Air 01/15/17 06:09 114 01/15/17 05:36 37.1 112 20 145/90 98 Room Air Physical Exam: General Appearance: no apparent distress, + obese Eyes: bilateral eyes normal inspection ENT: hearing grossly normal Neck: no JVD Respiratory/Chest: no respiratory distress, no accessory muscle use Cardiovascular: no JVD Extremities: normal inspection Neurologic/Psychiatric: alert, normal mood/affect, oriented x 3 Skin: normal color Assessment & Plan Assessment & Plan A/P: Urinary retention, UTI AFVSS. Pt's pelvic floor dysfunction, chronic constipation, Bridget Danlos, and current UTI likely all factors in her urinary retention. Will leave drake catheter in place for now, and start her on Flomax. Continue IV Cipro pending culture sensitivities. Would then transition her to 10 days of the appropriate oral abx prior to discharge. Fortunately the pt has an appt scheduled with her primary urologist in [place] this 01-17 at 9am. Recommend d/c home tomorrow after culture sensitivities return with the appropriate abx and drake in place so that she may f/u as scheduled for further evaluation and management of this issue. Thanks for the consult. Will continue to follow along with primary service.
[2017-01-15 15:23] VITALS: BP 119/80; PULSE 73; TEMP 36.8; O2SAT 100
[2017-01-15] MEDS: LACTULOSE SYRUP 10 GM/15 ML BTL 473 ML PO SCH ×2 (16:42→21:38)
[2017-01-15] MEDS ORDERED: TRAZODONE HCL 100 MG TAB PO SCH (21:00)
[2017-01-15] MEDS ORDERED: NEBIVOLOL HCL 5 MG TAB PO SCH (21:00)
[2017-01-15] MEDS ORDERED: TAMSULOSIN HCL 0.4 MG CAP PO SCH (21:00)
[2017-01-15 21:30] VITALS: BP 108/72; PULSE 73
[2017-01-15] MEDS: FLUTICASONE/SALMETEROL 250/50 (ADVAIR) 14 PUFF/1 INHALER INH SCH (21:37)
[2017-01-15] MEDS: BusPIRone 15 MG TAB PO SCH (21:38)
[2017-01-15] MEDS: RANITIDINE HCL 150 MG TAB PO SCH (21:39)
[2017-01-15] MEDS: CETIRIZINE HCL 10 MG TAB PO SCH (21:40)
[2017-01-15 22:54] VITALS: BP 95/61; PULSE 68; TEMP 36.8; O2SAT 98
[2017-01-16 07:14] VITALS: BP 119/76; PULSE 78; TEMP 37; O2SAT 97
[2017-01-16 07:36] LABS: PROTHROMBIN TIME (PATIENT) 10.8 SECONDS (9.0-12.0)
[2017-01-16] MEDS: OXYCODONE/ACETAMINOPHEN 5-325 TAB PO PRN (07:40)
[2017-01-16] MEDS ORDERED: PHENAZOPYRIDINE HCL 200 MG TAB PO SCH (07:45)
[2017-01-16 08:07] LABS: BUN/CREATININE RATIO 8.5 (10-20); CALCIUM 8.1 mg/dl (8.5-10.1); CREATININE 1.05 mg/dl (0.60-1.20); POTASSIUM 3.9 mmol/L (3.5-5.1)
[2017-01-16] MEDS: FLUTICASONE/SALMETEROL 250/50 (ADVAIR) 14 PUFF/1 INHALER INH SCH (08:49)
[2017-01-16] MEDS: RANITIDINE HCL 150 MG TAB PO SCH (08:50)
[2017-01-16] MEDS: BACLOFEN 10 MG TAB PO SCH (08:50)
[2017-01-16] MEDS: CETIRIZINE HCL 10 MG TAB PO SCH (08:51)
[2017-01-16] MEDS: BusPIRone 15 MG TAB PO SCH (08:51)
[2017-01-16] MEDS: LACTULOSE SYRUP 10 GM/15 ML BTL 473 ML PO SCH (08:52)
[2017-01-16] MEDS: POLYETHYLENE (MIRALAX) 17 GM PACK PO SCH (08:52)
[2017-01-16] MEDS ORDERED: PANTOprazole SOD 40 MG TAB PO SCH (09:00)
[2017-01-16] MEDS ORDERED: CYCLOBENZAPRINE HCL 5 MG TAB PO SCH (09:00)
[2017-01-16] MEDS ORDERED: DOCUSATE SODIUM/SENNA 50/8.6MG TAB PO SCH (09:00)
[2017-01-16] MEDS ORDERED: MONTELUKAST SOD 10 MG TAB PO SCH (09:00)
[2017-01-16] MEDS ORDERED: NORETHINDRONE ACETATE 5 MG TAB PO SCH (09:00)
[2017-01-16] MEDS ORDERED: HYDROXYCHLOROQUINE SULFATE 200 MG TAB PO SCH (09:00)
[2017-01-16] MEDS ORDERED: ARIPIprazole TAB 10 MG TAB PO SCH (09:00)
[2017-01-16] MEDS ORDERED: FLUOXETINE HCL 20 MG CAP PO SCH (09:00)
[2017-01-16] MEDS ORDERED: LORATADINE 10 MG TAB PO SCH (09:00)
[2017-01-16] MEDS ORDERED: OXYBUTYNIN CHLORIDE 5 MG TAB PO PRN (09:30)
--- NOTE | 2017-01-16 09:38 | Progress Note ---
Subjective Date of Service: Jan 16, 2017. Subjective Pt evaluation today including: conversation w/ patient, chart review, lab review Voiding: drake catheter in place (patent, draining clear, yellow urine ) 21 yo female with UR and UTI. Gross hematuria has resolved. UC&S growing mclean sensitive e coli. Pt c/o severe lower abdominal pain 10/10 this morning. She is tearful. Denies vomiting. Denies constipation. Reports she has had a BM. CT yesterday negative for stone. Problem List Medical Problems: (1) Abdominal pain Status: Acute (2) Acute urinary retention Status: Acute (3) Constipation Status: Acute (4) Constipation Status: Acute (5) Leukocytosis Status: Acute (6) Traumatic hematuria Status: Acute (7) Urinary retention Status: Acute (8) UTI (urinary tract infection) Status: Acute Review of Systems Constitutional: No fever, No chills Respiratory: No shortness of breath Cardiac: No chest pain Abdomen: + see HPI, + pain, + nausea, No vomiting Female : No hematuria Heme: No abnormal bleeding/bruising Objective Vital Signs Date Time Temp Pulse Resp B/P (MAP) Pulse Ox O2 Delivery O2 Flow Rate FiO2 01/16/17 07:14 37.0 78 16 119/76 (90) 97 Room Air 01/16/17 00:00 Room Air 01/15/17 22:54 36.8 68 16 95/61 (72) 98 Room Air 01/15/17 21:30 73 108/72 (84) 01/15/17 16:00 Room Air 01/15/17 15:23 36.8 73 16 119/80 (93) 100 Room Air 01/15/17 10:45 36.8 16 112/76 (88) 99 Room Air 01/15/17 10:45 Room Air 01/15/17 10:38 81 18 123/81 100 01/15/17 09:41 69 18 107/59 100 Room Air Physical Exam General Appearance: + moderate distress, + obese Eyes: normal inspection ENT: hearing grossly normal Neck: no JVD Respiratory/Chest: no respiratory distress, no accessory muscle use Cardiovascular: no JVD Abdomen: + tenderness (lower abdominal/suprapubic) Extremities: normal inspection Neurologic/Psychiatric: alert, normal mood/affect, oriented x 3 Skin: normal color Comments: Negative for CVA tenderness. Laboratory Results Last 24 Hours Test 01/16/17 07:09 Prothrombin Time 10.8 SECONDS Prothromb Time International Ratio 1.0 Sodium Level 139 mmol/L Potassium Level 3.9 mmol/L Chloride Level 106 mmol/L Carbon Dioxide Level 24 mmol/L Anion Gap 9.0 mmol/L Blood Urea Nitrogen 9 mg/dl Creatinine 1.05 mg/dl Est Creatinine Clear Calc Drug Dose 102.6 ml/min Estimated GFR () 87.3 Estimated GFR (Non- 75.3 BUN/Creatinine Ratio 8.5 Random Glucose 88 mg/dl Calcium Level 8.1 mg/dl Assessment and Plan A/P: UTI, UR, Gross hematuria AFVSS. Pt's pelvic floor dysfunction, chronic constipation, Bridget Danlos, and current UTI likely all factors in her urinary retention. Recommend transitioning her to 10 days of Cipro prior to d/c home. No CVA tenderness on exam today. Suspect her lower abdominal pain/suprapubic pain is r/t bladder spasms. Will add Pyridium to see if this helps. Will also order oxybutynin PRN. Pursue other etiology if this regimen with Percocet is not helpful. Continue Flomax. Continue constipation management. Hopeful the pt can be d/c'd today so that she can make her appt with her primary urologist back home in [place] tomorrow morning at 9am. Recall PRN issues. Thanks for allowing us to participate in this pt's care.
[2017-01-16] MEDS ORDERED: KETOROLAC TROMETHAMINE 30 MG/ML VIAL IV STA (09:48)
[2017-01-16 10:01] LABS: HEMATOCRIT 35.3 % (37-47); MEAN CELL VOLUME 80.6 fL (80-100); MEAN CORPUSCULAR HEMOGLOBIN 25.8 pg (25-34); MEAN PLATELET VOLUME 8.7 fL (7.4-10.4); PLATELET COUNT 218 K/uL (130-400); RED BLOOD COUNT 4.38 M/uL (4.2-5.4); WHITE BLOOD COUNT 10.28 K/uL (4.8-10.8)
--- NOTE | 2017-01-16 10:43 | Progress Note ---
Subjective Date of Service: Jan 16, 2017. Subjective Pt evaluation today including: conversation w/ patient, physical exam, lab review, review of studies, review of inpatient medication list Saw/examined the patient in room 384 Pyridium started as of this morning; now Drake is draining orange-reddish urine has lower abdominal pain; improved at times with medications +swelling around the eyes. Problem List Medical Problems: (1) Abdominal pain Status: Acute (2) Acute urinary retention Status: Acute (3) Constipation Status: Acute (4) Constipation Status: Acute (5) Leukocytosis Status: Acute (6) Traumatic hematuria Status: Acute (7) Urinary retention Status: Acute (8) UTI (urinary tract infection) Status: Acute Review of Systems Constitutional: No fever, No chills, No weakness Respiratory: No shortness of breath Cardiac: No chest pain Abdomen: + pain, No nausea, No vomiting, No diarrhea Female : + problem reported (retention) Medications Current Inpatient Medications Medications (Trade) Dose Ordered Sig/Madeline Route Start Time Stop Time Status Last Admin Dose Admin Acetaminophen (Tylenol Tab) 650 mg Q4H PRN PO 01/15/17 09:15 02/14/17 09:14 01/15/17 19:55 650 MG Ciprofloxacin/ Dextrose 400 mg/ Prmx 200 ml @ 100 mls/hr Q12H IV 01/15/17 12:00 01/20/17 11:59 01/15/17 23:56 100 MLS/HR Albuterol (Ventolin Hfa Inhaler) 2 puffs Q4H PRN INH 01/15/17 10:15 02/14/17 10:14 Aripiprazole (Abilify Tab) 10 mg DAILY PO 01/16/17 09:00 02/15/17 08:59 01/16/17 08:50 10 MG Baclofen (Lioresal Tab) 10 mg QID PO 01/15/17 13:00 02/14/17 12:59 01/16/17 08:50 10 MG Cetirizine HCl (zyrTEC TAB) 20 mg BID PO 01/15/17 21:00 02/14/17 20:59 01/16/17 08:51 20 MG Cyclobenzaprine HCl (Flexeril Tab) 5 mg DAILY PO 01/16/17 09:00 02/15/17 08:59 01/16/17 08:50 5 MG Diphenhydramine HCl (Benadryl Cap) 25 mg QID PO 01/15/17 13:00 02/14/17 12:59 01/16/17 08:51 25 MG Epinephrine (Epipen Jr) 0.15 mg UD PRN IM 01/15/17 10:15 02/14/17 10:14 Fluoxetine HCl (Prozac Cap) 40 mg DAILY PO 01/16/17 09:00 02/15/17 08:59 01/16/17 08:50 40 MG Salmeterol Xinafoate/ Fluticasone (Advair Diskus 250/50 Inh) 1 puff BID INH 01/15/17 21:00 02/14/17 20:59 01/16/17 08:49 1 PUFF Hydroxychloroquine Sulfate (Plaquenil Tab) 400 mg DAILY PO 01/16/17 09:00 02/15/17 08:59 01/16/17 08:50 400 MG Lidocaine (Lidoderm Patch 5%) 1 patch DAILY PRN TD 01/15/17 10:15 02/14/17 10:14 01/16/17 09:25 1 PATCH Loratadine (Claritin Tab) 10 mg DAILY PO 01/16/17 09:00 02/15/17 08:59 01/16/17 08:51 10 MG Montelukast Sodium (Singulair Tab) 10 mg DAILY PO 01/16/17 09:00 02/15/17 08:59 01/16/17 08:51 10 MG Norethindrone Acetate (Aygestin Tab) 5 mg DAILY PO 01/16/17 09:00 02/15/17 08:59 01/16/17 08:49 5 MG Oxycodone/ Acetaminophen (Percocet 5-325mg Tab) 1 tab Q4 PRN PO 01/15/17 10:15 01/29/17 10:14 01/16/17 07:40 1 TAB Promethazine HCl (Phenergan Tab) 25 mg Q4H PRN PO 01/15/17 10:15 02/14/17 10:14 01/16/17 08:48 25 MG Trazodone HCl (Desyrel Tab) 100 mg HS PO 01/15/17 21:00 02/14/17 20:59 01/15/17 21:43 100 MG Miscellaneous Information (Order Awaiting Action) 1 ea QS N/A 01/15/17 12:00 02/14/17 11:59 Pantoprazole Sodium (Protonix Tab) 40 mg DAILY PO 01/16/17 09:00 02/15/17 08:59 01/16/17 08:51 40 MG Nebivolol (Bystolic Tab) 2.5 mg HS PO 01/15/17 21:00 02/14/17 20:59 01/15/17 21:38 2.5 MG Polyethylene (Miralax Powder Packet) 17 gm TID PO 01/15/17 14:00 02/14/17 13:59 01/16/17 08:52 17 GM Ranitidine HCl (zANTac TAB) 150 mg BID PO 01/15/17 21:00 02/14/17 20:59 01/16/17 08:50 150 MG Buspirone HCl (BusPAR TAB) 30 mg BID PO 01/15/17 21:00 02/14/17 20:59 01/16/17 08:51 30 MG Clonazepam (Klonopin Tab) 1 mg HS PRN PO 01/15/17 10:15 02/14/17 10:14 01/15/17 21:44 1 MG Senna/Docusate Sodium (Senokot S Tab) 1 tab QAM PO 01/16/17 09:00 02/15/17 08:59 01/16/17 08:50 1 TAB Lorazepam (Ativan Tab) 1 mg DAILY PRN PO 01/15/17 10:15 02/14/17 10:14 Lactulose (Chronulac Syrup) 6.7 gm QID PO 01/15/17 17:00 02/14/17 16:59 01/16/17 08:52 6.7 GM Tamsulosin HCl (Flomax Cap) 0.4 mg HS PO 01/15/17 21:00 02/14/17 20:59 01/15/17 21:39 0.4 MG Phenazopyridine HCl (Pyridium Tab) 200 mg TID PO 01/16/17 07:45 02/15/17 07:44 01/16/17 07:40 200 MG Oxybutynin Chloride (Ditropan Tab) 5 mg TID PRN PO 01/16/17 09:30 02/15/17 09:29 Objective Vital Signs Date Time Temp Pulse Resp B/P (MAP) Pulse Ox O2 Delivery O2 Flow Rate FiO2 01/16/17 07:40 Room Air 01/16/17 07:14 37.0 78 16 119/76 (90) 97 Room Air 01/16/17 00:00 Room Air 01/15/17 22:54 36.8 68 16 95/61 (72) 98 Room Air 01/15/17 21:30 73 108/72 (84) 01/15/17 16:00 Room Air 01/15/17 15:23 36.8 73 16 119/80 (93) 100 Room Air 01/15/17 10:45 36.8 16 112/76 (88) 99 Room Air 01/15/17 10:45 Room Air 01/15/17 10:38 81 18 123/81 100 Physical Exam General Appearance: no apparent distress, + obese Eyes: + pertinent finding (mild swelling around the periorbital region) ENT: hearing grossly normal Neck: supple Respiratory/Chest: lungs clear, normal breath sounds, no respiratory distress, no accessory muscle use Cardiovascular: regular rate, rhythm, no edema, no murmur Abdomen: normal bowel sounds, soft, + tenderness, + pertinent finding (+Drake catheter in place) Laboratory Results Last 24 Hours Test 01/16/17 07:09 White Blood Count 10.28 K/uL Red Blood Count 4.38 M/uL Hemoglobin 11.3 g/dL Hematocrit 35.3 % Mean Corpuscular Volume 80.6 fL Mean Corpuscular Hemoglobin 25.8 pg Mean Corpuscular Hemoglobin Concent 32.0 g/dl RDW Standard Deviation 46.6 fL RDW Coefficient of Variation 15.9 % Platelet Count 218 K/uL Mean Platelet Volume 8.7 fL Prothrombin Time 10.8 SECONDS Prothromb Time International Ratio 1.0 Sodium Level 139 mmol/L Potassium Level 3.9 mmol/L Chloride Level 106 mmol/L Carbon Dioxide Level 24 mmol/L Anion Gap 9.0 mmol/L Blood Urea Nitrogen 9 mg/dl Creatinine 1.05 mg/dl Est Creatinine Clear Calc Drug Dose 102.6 ml/min Estimated GFR () 87.3 Estimated GFR (Non- 75.3 BUN/Creatinine Ratio 8.5 Random Glucose 88 mg/dl Calcium Level 8.1 mg/dl Assessment and Plan This is a 21yo with a PMH of RA, POTS syndrome, angioedema, bipolar disorder, anxiety, Bridget Danlos, IBS and low back pain who presents with worsening abdominal pain. UTI: 01/16 leukocytosis resolved urine culture = pansensitive e. coli will give 10 days of Cipro as outpatient keep drake in for discharge continue Flomax, Pyridium and oxybutynin as needed outpatient urology follow-up on 01/17 at 9AM 01/15 -Failed out-patient course of Bactrim -Received 1 dose of Rocephin in ER yesterday -Initiated IV Cipro today -Leukocytosis increased from 15 to 22.5 since yesterday -H/o chronic steroid use but denies taking currently -Blood and urine cultures pending -IVF resuscitation -Monitor CBC Urinary retention: -Endorses since last Saturday -Attempted to self cath but drake was placed yesterday -Hematuria 2/2 trauma to area -Likely caused in part by multiple anticholinergic medications -Urology consulted Abdominal pain: -Likely 2/2 UTI as well as constipation -CT abd/pelvis with mod. amt of stool in colon -Received a soap suds enema in ER with some success -Home meds for pain control -Increased "tier" of home constipation regimen: -Trulance -Linzess BID -Miralax TID -Lactulose QID -Senekot S Lower back pain: -No fever or CVA tenderness suggestive of pyelonephritis -Likely 2/2 immobility after multiple hospitalizations -States that she cannot get comfortable in hospital bed -Encouraged ambulation, scheduled Q shift -Continue home pain regimen of Baclofen, flexeril, lyrica, lidocaine patch Angioedema: -Seeks care at [facility] -Unknown etiology -Continue regimen of Benadryl 25 QID, Cromolyn sodium POTS Syndrome: -VS stable -Continue home dose Bystolic RA: -Continue Plaquenil Allergies: -Endorses anaphylactic reaction to amoxicillin, clinda, peanuts, latex -Also endorses severe seasonal allergies -Cont home regimen of claritin, zyrtec Bipolar disorder: -Stable -Continue Aripiprazole, Prozac Anxiety: - Continue Ativan PRN Insomnia: -Continue trazodone, klonopin DVT Ppx: SCDs Code status: FULL PCP: Outside provider in [place] Dispo: Plan to return home once medically stable Patient seen in collaboration with Dr. Eldridge. Please see addendum.
[2017-01-16] MEDS ORDERED: FLM4 PO ×2 (10:46)
[2017-01-16] MEDS ORDERED: PHEN-1043 PO ×2 (10:46)
[2017-01-16] MEDS ORDERED: CIPR-255 PO ×2 (10:46)
[2017-01-16] MEDS ORDERED: DTR5 PO ×2 (10:46)
--- NOTE | 2017-01-16 10:48 | Discharge Instructions ---
Discharge Instructions Date of Service Jan 16, 2017. Admission Reason for Admission: Abdominal Pain, Acute Urinary Retention Discharge Discharge Diagnosis / Problem: Urinary Retention, UTI Discharge Goals Goal(s): Decrease discomfort, Improve function, Diagnostic testing, Therapeutic intervention Activity Recommendations Activity Limitations: resume your previous activity . Instructions / Follow-Up Instructions / Follow-Up Please follow-up with your primary care physician and your urologist on 01/17 at 9AM You will be discharged with Cipro (antibiotic) for 10 days You will be discharged with Flomax, Pyridium, and Oxybutynin as needed You will also be discharged with the Gregorio catheter Current Hospital Diet Patient's current hospital diet: Clear Liquid Diet Discharge Diet Recommended Diet: Regular Diet Pending Studies Studies pending at discharge: no Medical Emergencies . Who to Call and When: Medical Emergencies: If at any time you feel your situation is an emergency, please call 911 immediately. . Non-Emergent Contact Non-Emergency issues call your: Primary Care Provider, Urologist . . "Provider Documentation" section prepared by Ana Eldridge. . VTE Core Measure Inpt VTE Proph given/why not?: SCD's
--- NOTE | 2017-01-16 10:51 | Discharge Summary ---
Discharge Summary Date of Service Jan 16, 2017. Discharge Summary Admission Date: Jan 15, 2017 at 09:43 Discharge Date: Jan 16, 2017 Discharge Disposition: Home Principal Diagnosis: Urinary Retention UTI Angioedema Constipation Bridget Danlos Syndrome Depression Anxiety POTS Medication Reconciliation New Medications: Ciprofloxacin Hcl (Cipro) 500 Mg Tab 500 MG PO BID for 10 Days, #20 TAB Oxybutynin Chloride (Oxybutynin Chloride) 5 Mg Tab 5 MG PO TID PRN for BLADDER SPASMS for 5 Days, #15 TAB Phenazopyridine HCl (Phenazopyridine HCl) 200 Mg Tab 200 MG PO TID for 3 Days, #9 TAB Tamsulosin HCl (Tamsulosin HCl) 0.4 Mg Cap 0.4 MG PO HS for 15 Days, #15 CAP Continued Medications: Albuterol (Ventolin Hfa) 60 Puffs/5400 Mcg Aers 2 PUFFS INH Q4H PRN for SOB/WHZ/Cough Albuterol Sulf (Albuterol Sulfate) 2.5 Mg/3 Ml Nebu 3 ML NEB QID PRN for SOB/Wheeze/Cough Aripiprazole (Abilify) 10 Mg Tab 10 MG PO DAILY, TAB Baclofen (Lioresal) 10 Mg Tab 10 MG PO QID, TAB Buspirone Hcl (Buspirone Hcl) 30 Mg Tab 30 MG PO BID, TAB Cetirizine Hcl (Zyrtec) 10 Mg Tab 20 MG PO BID, TAB Clonazepam (Klonopin) Unknown Strength Tab 1 MG PO HS, TAB Cromolyn Sodium (Mastocytosis) (Cromolyn Sodium) 100 Mg/5 Ml Con 10 ML PO TID Cyclobenzaprine Hcl (Flexeril) 5 Mg Tab 5 MG PO DAILY, TAB Diphenhydramine Hcl (Benadryl Allergy) 25 Mg Cap 1 CAP PO QID for 30 Days, #30 CAP 1 Refill Docusate Sodium (Colace) Unknown Strength Cap 1 CAP PO UD, CAP Epinephrine (Epipen-Jr 2-Jai) 0.15 Mg/0.3 Ml Inj 0.15 MG IM UD PRN for ALLERGIC REACTION Fluoxetine (Prozac) 40 Mg Cap 40 MG PO DAILY, CAP Fluticasone Prop/Salmeterol (Advair Diskus 250/50 60 Dose) 1 Ea Aerp 1 PUFF INH BID, INHALER Furosemide (Lasix) 40 Mg Tab 40 MG PO BID PRN for Fluid Retention, TAB Granisetron (Sancuso) 3.1 Mg/24 Hr Dis 1 PATCH TOP WK Hydroxychloroquine Sulfate (Plaquenil) 200 Mg Tab 400 MG PO DAILY, TAB Lactobacillus (Acidophilus) 1 Cap Cap 1 CAP PO BID Lactulose (Chronulac) 10 Gm/15 Ml Syrp 10 ML PO QID Lansoprazole (Prevacid) 30 Mg Cap 30 MG PO DAILY, CAP Lidocaine (Lidocaine) 5 % Pad 1 PATCH TOP DAILY PRN for Pain Linaclotide (Linzess) 145 Mcg Cap 145 MCG PO DAILY Lisdexamfetamine Dimesylate (Vyvanse) Unknown Strength Cap 1 DOSE PO DAILY, CAP Loratadine (Claritin) 10 Mg Tab 10 MG PO DAILY, TAB Lorazepam (Ativan) Unknown Strength Tab 1 MG PO UD PRN for Anxiety, TAB Lubiprostone (Amitiza) 24 Mcg Cap 24 MCG PO BID, CAP Montelukast Sodium (Montelukast Sodium) 10 Mg Tab 10 MG PO DAILY, TAB Nebivolol Hcl (Bystolic) 2.5 Mg Tab 2.5 MG PO HS, TAB Norethindrone (Aygestin) 5 Mg Tab 5 MG PO DAILY, TAB Oxycodone/Acetaminophen 5MG/325MG (Percocet 5MG/325MG) Tab 1-2 TABLETS PO Q4 PRN for Pain, TAB PAIN Plecanatide (Trulance) Unknown Strength Tab 1 TAB PO UD Polyethylene Glycol 3350 (Bulk (Polyethylene Glycol 3350) 1 Pow Pow 1 GM PO TID, GM Pregabalin (Lyrica) Unknown Strength Cap 1 CAP PO UD, CAP Promethazine Hcl (Phenergan) 25 Mg Tab 25 MG PO Q4H PRN for Nausea, TAB Ranitidine Hcl (Ranitidine Hcl) 150 Mg Cap 150 MG PO BID, CAP Trazodone Hcl (Trazodone) 100 Mg Tab 100 MG PO HS, TAB Discontinued Medications: Sulfa/Trimethoprim (Bactrim Ds 800MG/160MG) Tab 1 TAB PO BID for 7 Days, #14 TAB Admission Information HPI (per Admitting provider): This is a 21yo with a PMH of RA, POTS syndrome, angioedema, bipolar disorder, anxiety, Bridget Danlos, IBS and low back pain who presents with worsening abdominal pain. Patient has a complex medical history and was evaluated at [facility] last week in [place] for angioedema. Resides in [facility] but is in [place] with her mom who is attending a work conference. Lower abdominal pain started on Saturday after a few days of acute urinary retention. Was started on Bactrim by her PCP and was instructed to self-cath. Was struggling to self-cath and continued to have urinary retention and back pain, so she presented to [facility] ED yesterday and was diagnosed with ovarian cysts and a possible UTI. A drake catheter was placed and the patient received a rocephin injection before being discharged home on bactrim and percocet. Returned to the ED today with worsening lower abd/suprapubic pain that is constant, sharp and made worse with standing.Still endorsing intermittent "spasm like" pain in her lower back. Drake is in place draining reddish urine. States that she had a fever last night. Now denying any fever, chills, CP, palpitations, SOB, nausea, vomiting, dysuria, LE swelling. Has a significant history of IBS and endorses feeling constipated over the past week. Has 4 different "tiers" of bowel regimens at home and has been on her 2nd tier regimen, which includes miralax BID, Linzess daily, Amatiza BID and Lactulose BID. Had a soap suds enema in the ER earlier and has had an episode of diarrhea since. Physical Exam (per Admitting): General Appearance: no apparent distress, + obese Head: normocephalic, atraumatic Eyes: normal inspection, PERRL, sclerae normal (conjunctiva normal ) ENT: normal ENT inspection, hearing grossly normal, pharynx normal (dry mucous membranes ) Neck: supple, thyroid normal, trachea midline Respiratory/Chest: chest non-tender, lungs clear, normal breath sounds, no respiratory distress, no accessory muscle use Cardiovascular: regular rate, rhythm, no murmur, normal peripheral pulses Abdomen/GI: normal bowel sounds, soft, no organomegaly, + tenderness (TTP in lower abdomen/suprapubic area ) Genitourinary - Female: + pertinent finding (Drake in place ) Back: normal inspection, + pertinent finding (Paravertebral TTP in lumbosacral area. No CVA tenderness ) Extremities/Musculoskelatal: normal inspection, no calf tenderness, non- tender, + swelling (Trace swelling of ankles bilaterally ) Neurologic/Psych: no motor/sensory deficits, alert, normal mood/affect, oriented x 3 Skin: normal color, warm/dry, no rash Hospital Course This is a 21yo with a PMH of RA, POTS syndrome, angioedema, bipolar disorder, anxiety, Bridget Danlos, IBS and low back pain who presents with worsening abdominal pain. UTI: 01/16 leukocytosis resolved urine culture = pansensitive e. coli will give 10 days of Cipro as outpatient keep drake in for discharge continue Flomax, Pyridium and oxybutynin as needed outpatient urology follow-up on 01/17 at 9AM 01/15 -Failed out-patient course of Bactrim -Received 1 dose of Rocephin in ER yesterday -Initiated IV Cipro today -Leukocytosis increased from 15 to 22.5 since yesterday -H/o chronic steroid use but denies taking currently -Blood and urine cultures pending -IVF resuscitation -Monitor CBC Urinary retention: -Endorses since last Saturday -Attempted to self cath but drake was placed yesterday -Hematuria 2/2 trauma to area -Likely caused in part by multiple anticholinergic medications -Urology consulted Abdominal pain: -Likely 2/2 UTI as well as constipation -CT abd/pelvis with mod. amt of stool in colon -Received a soap suds enema in ER with some success -Home meds for pain control -Increased "tier" of home constipation regimen: -Trulance -Linzess BID -Miralax TID -Lactulose QID -[place] S Lower back pain: -No fever or CVA tenderness suggestive of pyelonephritis -Likely 2/2 immobility after multiple hospitalizations -States that she cannot get comfortable in hospital bed -Encouraged ambulation, scheduled Q shift -Continue home pain regimen of Baclofen, flexeril, lyrica, lidocaine patch Angioedema: -Seeks care at [facility] -Unknown etiology -Continue regimen of Benadryl 25 QID, Cromolyn sodium POTS Syndrome: -VS stable -Continue home dose Bystolic RA: -Continue Plaquenil Allergies: -Endorses anaphylactic reaction to amoxicillin, clinda, peanuts, latex -Also endorses severe seasonal allergies -Cont home regimen of claritin, zyrtec Bipolar disorder: -Stable -Continue Aripiprazole, Prozac Anxiety: - Continue Ativan PRN Insomnia: -Continue trazodone, klonopin DVT Ppx: SCDs Code status: FULL PCP: Outside provider in [place] Dispo: Plan to return home once medically stable Patient seen in collaboration with Dr. Eldridge. Please see addendum. Total time spent on discharge = 45 minutes This includes examination of the patient, discharge planning, medication reconciliation, and communication with other providers. Discharge Instructions Please follow-up with your primary care physician and your urologist on 01/17 at 9AM You will be discharged with Cipro (antibiotic) for 10 days You will be discharged with Flomax, Pyridium, and Oxybutynin as needed You will also be discharged with the Drake catheter
[2017-01-16 11:00] VITALS: BP 119/76; PULSE 78; TEMP 37; O2SAT 97
== END 2017-01-16 11:39 | disposition home health service (06) | DRG 690 ==
LOC: C.EDB 05:32 → EDBEDREQSVC 09:42 → C.MSN 09:43 → EDBEDREQ 09:44 → EDBEDREQSVC 09:52 → EDBEDREQ 09:52 → ENRESERV 10:19
PROVIDERS: ADMIT Family Medicine; ATTEND Family Medicine
DX: N39.0 Urinary tract infection, site not specified (principal); Q79.6 Ehlers-Danlos syndromes; M06.9 Rheumatoid arthritis, unspecified; I49.8 Other specified cardiac arrhythmias; B96.20 Unspecified Escherichia coli [E. coli] as the cause of diseases classified elsewhere; J45.909 Unspecified asthma, uncomplicated; Z83.3 Family history of diabetes mellitus; Z82.49 Family history of ischemic heart disease and other diseases of the circulatory system; K59.00 Constipation, unspecified; R33.9 Retention of urine, unspecified; K58.9 Irritable bowel syndrome, unspecified; F31.9 Bipolar disorder, unspecified; G47.00 Insomnia, unspecified; N83.209 Unspecified ovarian cyst, unspecified side